=== PATIENT | male | born 1945 | race African-American/Black ===

== ENCOUNTER 2019-01-25 10:14 | Inpatient (IN) ==
[2019-01-25] MEDS ORDERED: PIPERACILLIN/TAZOBACTAM 4.5 GM/120 ML BAG IV ONE (11:00)
[2019-01-25] MEDS ORDERED: ACETAMINOPHEN 500 MG TAB PO STA (11:00)
[2019-01-25] MEDS ORDERED: DAPTOmycin 450 MG in SYRINGE 0 ML IV ONE (11:00)
[2019-01-25] MEDS ORDERED: PIPERACILL/TAZOBAC CONSULT ACTIVE PRN (11:00)
[2019-01-25 11:13] LABS: Basophils # (auto) 0.01 K/uL (0-0.2); Basophils % (auto) 0.1 %; Eosinophils # (auto) 0.02 K/uL (0-0.5); Eosinophils % (auto) 0.1 %; Hematocrit (blood only) 39.8 % (42-52); Hemoglobin 13.9 g/dL (14.0-18.0); Immature Granulocytes # (auto) 0.08 K/uL (0.00-0.02); Immature Granulocytes % (auto) 0.5 %; Lymphocytes # (auto) 1.53 K/uL (1.2-3.4); Lymphocytes % (auto) 9.9 %; Mean Corpuscular Hgb Conc 34.9 g/dL (32-36); Mean Corpuscular Volume 96.4 fL (80-100); Mean Platelet Volume 9.7 fL (7.4-10.4); Monocytes # (auto) 1.65 K/uL (0.11-0.59); Monocytes % (auto) 10.7 %; Neutrophils # (auto) 12.13 K/uL (1.4-6.5); Neutrophils % (auto) 78.7 %; Platelet Count 223 K/uL (130-400); RDW Coefficient of Variation 13.2 % (11.5-14.5); RDW Standard Deviation 46.3 fL (36.4-46.3); Red Blood Count 4.13 M/uL (4.7-6.1); White Blood Count 15.42 K/uL (4.8-10.8)
--- NOTE | 2019-01-25 11:18 | XRay Report ---
XR chest 1V portable CLINICAL HISTORY: Sepsis COMPARISON STUDY: No previous studies for comparison. FINDINGS: The cardiac and mediastinal contours are normal. There is no evidence of focal pulmonary co nsolidation. There is no evidence of failure. No pleural effusions are visualized.[ There is a radiop aque BB like object projected over the left scapular glenoid. IMPRESSION: No active disease in the chest. Electronically signed by: Eber Ahumada M.D. 01/25/2019 11:17 AM
[2019-01-25 11:26] LABS: INR 1.1 (0.9-1.1); Partial Thromboplastin Time 28.2 Seconds (21.0-31.0); Prothrombin Time 11.4 Seconds (9.0-12.0)
[2019-01-25 11:31] LABS: Alanine Aminotransferase 42 U/L (12-78); Albumin Level 3.1 gm/dl (3.4-5.0); Aspartate Aminotransferase 28 U/L (15-37); BUN Creatinine Ratio 8.6 (10-20); Blood Urea Nitrogen 13 mg/dl (7-18); Calcium 8.9 mg/dl (8.5-10.1); Carbon Dioxide 21 mmol/L (21-32); Chloride 104 mmol/L (98-107); Creatinine Clr Calc Pharmacy 50.2 ml/min; Est GFR (African American) 51.8; Est GFR (Non-African American) 44.7; Glucose 125 mg/dl (70-99); Potassium 3.4 mmol/L (3.5-5.1); Sodium 136 mmol/L (136-145)
[2019-01-25 11:35] LABS: Albumin Globulin Ratio 0.7 (0.9-2); Alkaline Phosphatase 92 U/L (45-117); Bilirubin,Total 2.3 mg/dl (0.2-1); Creatine Kinase 154 U/L (39-308); Creatine Kinase MB < 1.0 ng/ml (0.5-3.6); Globulin 4.3 gm/dl (2.5-4.0); Total Protein 7.4 gm/dl (6.4-8.2)
[2019-01-25] MEDS ORDERED: SODIUM CHLORIDE 0.9% 1000ML 1,000 ML IV ONE (11:36)
[2019-01-25] MEDS ORDERED: POTASSIUM CHLORIDE 20 MEQ TABCR PO STA (11:36)
[2019-01-25] MEDS ORDERED: IOVERSOL 100ml IV PRN (11:53)
[2019-01-25 11:54] LABS: iSTAT Creatinine 1.4 mg/dl (0.6-1.3); iSTAT Hemoglobin 13.9 g/dl (14.0-18.0); iSTAT Potassium 3.5 mEq/L (3.3-5.0)
--- NOTE | 2019-01-25 12:12 | CT Scan Report ---
CT abd pelvis IV con only CLINICAL HISTORY: 73 years-old Male presenting with prostatitis, dizziness, disorientation, urinary i ncontinence, hematuria, fever and chills for 2 days, history of prostate biopsy on 01/22/2019. TECHNIQUE: Multidetector CT of the abdomen and pelvis was performed after the administration of intra venous contrast. IV contrast: 93 mL of Optiray 320. One or more dose lowering techniques were used co nsistent with the principles of ALARA (as low as reasonably achievable), including automatic exposure control, mA or kV adjustment to individual patient size, and/or use of iterative reconstruction. COMPARISON: None. CT DOSE (mGy.cm): The estimated cumulative dose is 1033.42 mGy.cm. FINDINGS: Insulator Tester topogram: Unremarkable. Lung bases: Normal heart size. Coronary artery calcification. No pericardial or pleural effusion. Min imal dependent changes likely atelectasis. Mild centrilobular emphysema. Paramediastinal bullae/blebs in the left perihilar region. Liver: Normal morphology. No liver lesion. Patent hepatic vasculature. Biliary: No intrahepatic or extrahepatic biliary ductal dilatation. Normal gallbladder. Pancreas: Mild parenchymal atrophy. Spleen: Normal. Splenule noted. Adrenal glands: Normal. Kidneys and ureters: Mildly asymmetric left perinephric fat infiltration. Symmetric and normal renal enhancement bilaterally. No nephrolithiasis or hydronephrosis. No gross evidence of urothelial thicke papi. Ureters nondilated. Bladder: Incompletely evaluated secondary to underdistention. Pelvic organs: Prostate enlargement likely secondary to benign prostatic hyperplasia. 2.2 cm fluid co llection within the anterior transition zone of the mid gland to apex. It is uncertain if this is in continuity with the prostatic urethra. This is suspicious for abscess given the clinical history and the presence of periprosthetic fat infiltration. Bowel: Mild rectal wall thickening in the mid to lower rectum. Mesorectal fat infiltration as well as presacral trace fluid consistent with the history of recent transrectal ultrasound-guided biopsy of the prostate. The appendix is normal. No bowel obstruction. Contrast or medication evident in the eso phagus and gastric lumen, which is radiodense. Peritoneal cavity: Trace fluid in the pelvis in the rectoprostatic recess. No free intraperitoneal or extra luminal gas. Lymph nodes: Few scattered prominent subcentimeter lymph nodes in the retroperitoneum. Vasculature: Atherosclerosis of the normal caliber abdominal aorta. IVC patent. Abdominal wall: Normal. Musculoskeletal: Degenerative changes of the spine. Partially visualized left femoral hyperdensity. D egenerative changes of the left hip joint. IMPRESSION: 1. 2.2 cm fluid collection within the prostate most suspicious for prostatic abscess. The primary di fferential consideration includes cystic degeneration of a benign prostatic hyperplasia (BPH) nodule. 2. Inflammatory changes in the region of the rectum consistent with history of recent TRUS prostate biopsy. 3. Prostatomegaly. 4. Nonspecific perinephric infiltration on the left without abnormal parenchymal enhancement or othe r evidence to suggest upper tract infection. 5. Emphysema. Electronically signed by: Herman Hastings M.D. 01/25/2019 12:11 PM
[2019-01-25] MEDS ORDERED: GENTAMICIN CONSULT ACTIVE PRN (12:44)
[2019-01-25] MEDS ORDERED: GENTAMICIN SULFATE 120 MG in DEXTROSE 5% 100 ML IV STA (12:44)
--- NOTE | 2019-01-25 12:54 | Urology Consultation ---
Date of Consultation January 25, 2019 Assessment & Plan (1) Fever: (2) Prostate abscess: 73yo M with prostate abscess, sepsis s/p prostate biopsy Pt has been NPO all day. Pt also evaluated by Dr. Ziegler at bedside. Acute febrile illness the context of prostate abscess on CT imaging, will pro ceed with OR for transurethral resection of prostate emergently. Risks and benefits reviewed by Dr. Ziegler. OR notified. Preoperative CXR and EKG done. Pt covered with IV zosyn and daptomycin. IV Gentamicin also to be administered in preop - ordered by emergency medicine. Dr. Sesay from medicine also at bedside to evaluate patient, agreeable to proceed with emergent TURP. He will be admitted to medicine post-operatively. Thank you for allowing us to participate in the acute care of Mr. Lara. History of Present Illness Reason for Consultation: prostate abscess Requesting Physician: Dr. Beckwith History of Present Illness 73yo M inmate from [facility] with LUTS and elevated PSA presented to [facility] ED for evaluation of fever s/p prostate biopsy on 01/[address] Ziegler. He was doing okay post op day one, then develops general malaise and fevers/chills.. Upon ED evaluation, he was febrile at 38.0C, wbc 15.4, lactic acid 1.88. He was tachycardic, BP stable. CT imaging demonstrates 2.2cm fluid collection within the prostate, consistent with prostate abscess. He is alert and oriented. Denies SOB/Chest pain. Denies dysuria, mild hematuria. He denies pelvic pain or abdominal pain. Patient History Medical History No significant family history No significant medical problems No significant past medical history No significant past surgical history Social History Preferred Language: Hungarian Emt Basic Required: No Beliefs That Will Affect Care: None Current Living Situation: Other Current Living Situation Comment: [facility] Other Information That Helps Us Care for You: No Feels Safe at Home: Yes Safety Concerns: Feels Safe At This Time Smoking Status: Former smoker Smoking End Date: 2001 Second Hand Exposure: No Hx Alcohol Use: No Hx Substance Use: No Review of Systems Constitutional: + fever, + chills and + malaise; no weight loss Eyes: no corrective lenses and no problem reported Ear, Nose, Mouth, Throat: no ear pain and no tinnitus Respiratory: no cough and no dyspnea Cardiovascular: no chest pain and no dyspnea Gastrointestinal: no abdominal pain, no nausea and no vomiting Genitourinary: no dysuria, no nocturia, no hematuria and no testicle pain Musculoskeletal: no back pain Integumentary: no acne Neurologic: no numbness, no paresthesia and no radiating pain memory loss s/p CVA per patient Psychiatric: no depression and no hopelessness Endocrine: + fatigue; no polyuria Hematologic / Lymphatic: no easy bleeding Physical Exam Constitutional: + ill appearing; no acute distress and not lethargic warm to touch Eyes: no nystagmus ENMT: Ears: no hearing impairment and no TM abnormality Neck: + trachea not midline Respiratory: no respiratory distress and does not use accessory muscles Cardiovascular: Rate/Rhythm: + tachycardic Heart Sounds: normal S1 and normal S2 Vessels: no JVD Chest (Breasts): Breast: no breast mass Gastrointestinal (Abdomen): Inspection/Auscultation: abdomen not distended and no abdominal edema Percussion/Palpation: abdomen soft; abdomen nontender Musculoskeletal: Head/Neck/Chest: normocephalic and head atraumatic Skin: no rashes and no lesions Neurologic: CN's II-XI intact bilaterally and awake; not confused and not obtunded Psychiatric: Orientation: alert and oriented x 3 Eye Contact: good eye contact Speech: no pressured speech Results & Data Vital Signs (Past 12 Hours) Vital Signs Temp Pulse Resp BP Pulse Ox 01/25/19 12:31 37.4 C 01/25/19 12:08 108 H 21 115/70 95 01/25/19 12:04 111 H 19 01/25/19 11:45 115 H 19 01/25/19 11:30 115 H 17 01/25/19 11:15 115 H 18 01/25/19 11:00 119 H 20 01/25/19 10:45 116 H 20 01/25/19 10:18 38.0 C H 126 H 20 117/59 L 94 Laboratory Results Laboratory Results - last 48 hr 01/25/19 01/25/19 01/25/19 10:47 10:47 10:47 WBC 15.42 H RBC 4.13 L Hgb 13.9 L POC Hgb Hct 39.8 L POC Hct MCV 96.4 MCH 33.7 MCHC 34.9 RDW Std Deviation 46.3 RDW Coeff of Babak 13.2 Plt Count 223 MPV 9.7 Immature Gran % (Auto) 0.5 Neut % (Auto) 78.7 Lymph % (Auto) 9.9 Hancock % (Auto) 10.7 Eos % (Auto) 0.1 Baso % (Auto) 0.1 Immature Gran # (Auto) 0.08 H Neut # (Auto) 12.13 H Lymph # (Auto) 1.53 Hancock # (Auto) 1.65 H Eos # (Auto) 0.02 Baso # (Auto) 0.01 PT 11.4 INR 1.1 APTT 28.2 PTT Ratio 1.0 POC Sodium Sodium 136 POC Potassium Potassium 3.4 L POC Chloride Chloride 104 Carbon Dioxide 21 POC Total CO2 Anion Gap 11.0 POC Anion Gap POC BUN BUN 13 Creatinine 1.54 H POC Creatinine Est Cr Clr Drug Dosing 50.2 Est GFR ( Amer) 51.8 Est GFR (Non-Af Amer) 44.7 BUN/Creatinine Ratio 8.6 L Glucose 125 H POC Glucose (other) POC Lactic Acid Vinny Calcium 8.9 POC Ioniz Calcium John Total Bilirubin 2.3 H AST 28 ALT 42 Alkaline Phosphatase 92 Total Creatine Kinase 154 CK-MB (CK-2) < 1.0 CK/CKMB % Calc TNP Total Protein 7.4 Albumin 3.1 L Globulin 4.3 H Albumin/Globulin Ratio 0.7 L 01/25/19 01/25/19 11:38 11:42 WBC RBC Hgb POC Hgb 13.9 L Hct POC Hct 41 L MCV MCH MCHC RDW Std Deviation RDW Coeff of Babak Plt Count MPV Immature Gran % (Auto) Neut % (Auto) Lymph % (Auto) Hancock % (Auto) Eos % (Auto) Baso % (Auto) Immature Gran # (Auto) Neut # (Auto) Lymph # (Auto) Hancock # (Auto) Eos # (Auto) Baso # (Auto) PT INR APTT PTT Ratio POC Sodium 136 Sodium POC Potassium 3.5 Potassium POC Chloride 100 L Chloride Carbon Dioxide POC Total CO2 22 L Anion Gap POC Anion Gap 18.0 POC BUN 13 BUN Creatinine POC Creatinine 1.4 H Est Cr Clr Drug Dosing Est GFR ( Amer) Est GFR (Non-Af Amer) BUN/Creatinine Ratio Glucose POC Glucose (other) 123 H POC Lactic Acid Vinny 1.88 H Calcium POC Ioniz Calcium John 1.00 L Total Bilirubin AST ALT Alkaline Phosphatase Total Creatine Kinase CK-MB (CK-2) CK/CKMB % Calc Total Protein Albumin Globulin Albumin/Globulin Ratio (1) Fever Fever type: unspecified Qualified Code(s): R50.9 - Fever, unspecified
--- NOTE | 2019-01-25 13:18 | History & Physical Report ---
Date of Service January 25, 2019 Assessment & Plan (1) Fever: Possible early sepsis Dapto/Zosyn in the ED, further abx as per urology Blood cx pending (2) Prostate abscess: s/p bx with Dr. Ziegler on 01/23 Planning for OR this afternoon Will defer choice of IVF and abx to urology Pt is NPO for OR, can have a diet after if urology is fine with this (3) Hyperlipidemia: continue home meds (4) BPH (benign prostatic hyperplasia): continue home meds (5) History of CVA (cerebrovascular accident): Aspirin 325mg Hold for now given OR, resume once urology feels able (6) DVT prophylaxis: SCDs for now given OR status History of Present Illness Primary Care Provider: ALLEY Steinberg 73 y/o M c/o fever. Pt underwent a prostate bx with Dr. Ziegler 2 days ago. Since that time, he has felt generally unwell and was noted to have a fever. He was given an antibiotic at some point, although I cannot tell what that was and pt is not certain. Today, pt had an episode of urinary incontinence that was noted to be bloody. This had not happened to him prior. He has not had a bowel movement since his bx. He notes no pain in the region of the bx. Pt denies SOB, chest pain, abd pain, n/v/c/d, LE pain or swelling. Allergies Allergy/AdvReac Type Severity Reaction Status Date / Time No Known Allergies Allergy Unverified 01/25/19 13:21 Home Medications Home Medications Medication Instructions Recorded Confirmed Type aspirin [Aspir-81] 81 mg PO DAILY 01/25/19 01/25/19 History atorvastatin 40 mg PO PM 01/25/19 01/25/19 History Past Med/Surg History Medical History No significant family history No significant medical problems No significant past medical history No significant past surgical history Social History Preferred Language: New Zealander Astrochemist Required: No Beliefs That Will Affect Care: None Current Living Situation: Other Current Living Situation Comment: [facility] Other Information That Helps Us Care for You: No Feels Safe at Home: Yes Safety Concerns: Feels Safe At This Time Smoking Status: Former smoker Smoking End Date: 2001 Second Hand Exposure: No Hx Alcohol Use: No Hx Substance Use: No Review of Systems Review of Systems: Pertinent positives and negatives reviewed in HPI--all others negative Physical Exam Constitutional: WD/WN, vitals as above + ill appearing Eyes: normal visual burden by confrontation and + anicteric sclerae Neck: normal visual inspection and trachea midline Respiratory: normal respiratory effort, lungs clear to auscultation Cardiovascular: Rate/Rhythm: regular rate and regular rhythm Gastrointestinal (Abdomen): Inspection/Auscultation: abdomen not distended Percussion/Palpation: abdomen soft; abdomen nontender Musculoskeletal: Head/Neck/Chest: normocephalic and head atraumatic negative for edema, peripheral pulses intact Skin: no rashes, warm and dry Neurologic: awake; not confused Speech / Cognition: normal speech Psychiatric: A+Ox3, euthymic affect Results & Data Vital Signs (Past 12 Hours) Vital Signs Temp Pulse Resp BP Pulse Ox 01/25/19 12:45 103 H 17 97 01/25/19 12:31 37.4 C 01/25/19 12:30 105 H 19 112/68 97 01/25/19 12:15 106 H 19 95 01/25/19 12:09 109 H 19 96 01/25/19 12:08 108 H 21 115/70 95 01/25/19 12:04 111 H 19 01/25/19 11:45 115 H 19 01/25/19 11:30 115 H 17 01/25/19 11:15 115 H 18 01/25/19 11:00 119 H 20 01/25/19 10:45 116 H 20 01/25/19 10:18 38.0 C H 126 H 20 117/59 L 94 Diagnostic Findings CXR: neg for acute CTAP: abcess noted in region of bx ECG Rhythm: sinus tachycardia Code Status & VTE Plan Code Status Full code VTE Prophylaxis Plan VTE Prophylaxis will be ordered: Yes (1) Fever Fever type: unspecified Qualified Code(s): R50.9 - Fever, unspecified
[2019-01-25] MEDS ORDERED: ONDANSETRON INJ 2 MG/ML 2 ML VIAL IV PRN (13:29)
[2019-01-25] MEDS ORDERED: MAGNESIUM HYDROXIDE SUSP 30 ML UDC PO PRN (13:29)
--- NOTE | 2019-01-25 13:35 | Urology Progress Note ---
Date of Service January 25, 2019 Subjective Pt in preop . Ct reviewed w pathology . They feel he has fluid abscess in prostate . Pt understands risk of ongoing fever and bleeding with need for transfusion and or reoperation and agrees to proceed . Results & Data Vital Signs (Past 12 Hours) Vital Signs Temp Pulse Pulse Resp BP BP Pulse Ox 01/25/19 13:16 37.4 C 101 H 18 114/72 97 01/25/19 12:45 103 H 17 97 01/25/19 12:31 37.4 C 01/25/19 12:30 105 H 19 112/68 97 01/25/19 12:15 106 H 19 95 01/25/19 12:09 109 H 19 96 01/25/19 12:08 108 H 21 115/70 95 01/25/19 12:04 111 H 19 01/25/19 11:45 115 H 19 01/25/19 11:30 115 H 17 01/25/19 11:15 115 H 18 01/25/19 11:00 119 H 20 01/25/19 10:45 116 H 20 01/25/19 10:18 38.0 C H 126 H 20 117/59 L 94
[2019-01-25] MEDS ORDERED: MIDAZOLAM HCL 1 MG/ML 2ML VIAL ONE (13:36)
[2019-01-25] MEDS ORDERED: PROPOFOL IV EMULSION 10 MG/ML 20 ML VIAL IV ONE (13:36)
[2019-01-25] MEDS ORDERED: LIDOCAINE HCL 2% 2 ML VIAL/AMP(20MG/ML) INFIL ONE (13:36)
[2019-01-25] MEDS ORDERED: fentaNYL citrate 100 MCG/2 ML VIAL ONE (13:36)
--- NOTE | 2019-01-25 13:43 | Anesthesiology Consultation ---
Date of Service January 25, 2019 Assessment & Plan Chart Review Chart Review: Acceptable Risk for Surgery Consults Requested none Proposed Anesthesia Risk / Benefits Reviewed With: PT / POA / Parent / Guardian, Accepts Plan and Informed Consent Obtained History Surgery Operation Date: 01/25/19 12:50 Proposed Procedures p Transurethral Resection Prostate of Abscess - Angelo Ziegler MD Height/Weight Height: 5 ft 10 in Weight: 92 kg Allergies Allergy/AdvReac Type Severity Reaction Status Date / Time No Known Allergies Allergy Unverified 01/25/19 13:21 Medications Home Medications Medication Instructions Recorded Confirmed Last Taken aspirin [Aspir-81] 81 mg PO DAILY 01/25/19 01/25/19 01/22/19 08:00 atorvastatin 40 mg PO PM 01/25/19 01/25/19 Unknown Active Medications Generic Name Dose Route Start Last Admin Trade Name Freq PRN Reason Stop Dose Admin Ioversol 93 ml 01/25/19 11:53 01/25/19 11:53 Optiray 320 100ml IV 01/29/19 11:52 93 ml ONCE PRN Administration Interaction Checking NPO Date Last Intake of Fluids: 01/24/19 Time Last Intake of Fluids: 21:00 Date Last Intake of Solids: 01/23/19 Time Last Intake of Solids: 18:00 Past Medical History Medical History No significant family history No significant medical problems No significant past medical history No significant past surgical history Social History Smoking Status: Former smoker Smoking End Date: 2001 Hx Alcohol Use: No Hx Substance Use: No Physical Exam Vital Signs Last Vital Signs Temp 37.4 C 01/25/19 13:16 Pulse 101 H 01/25/19 13:16 Resp 18 01/25/19 13:16 BP 114/72 01/25/19 13:16 Pulse Ox 97 01/25/19 13:16
[2019-01-25] MEDS ORDERED: PHENYLEPHRINE 100MCG/ML 5ML SYR ONE (15:02)
[2019-01-25] MEDS ORDERED: ePHEDrine sulfate 50 MG/ML SYR ONE (15:02)
--- NOTE | 2019-01-25 16:37 | Post Operative Brief Note ---
Immediate Post Op Note v1 Date of Surgery January 25, 2019 Pre & Post Diagnosis Operation Date: 01/25/19 12:50 Pre-Op Diagnosis: Prostate Abscess Post-Op Diagnosis: Prostate Abscess Procedure Operation Date: 01/25/19 12:50 Actual Procedures p Transurethral Resection Prostate of Abscess(Not Applicable) - Angelo Ziegler MD Surgeon Angelo Ziegler MD Cutting Table Operator none Estimated Blood Loss 5 Findings See Below (no definite abscess found toothpaste like pus seen right greater than left) Drains Gibson Catheter
[2019-01-25] MEDS ORDERED: fentaNYL citrate 100 MCG/2 ML VIAL IV PRN (16:45)
[2019-01-25] MEDS ORDERED: ePHEDrine sulfate 50 MG/ML AMP IV PRN (16:45)
[2019-01-25] MEDS ORDERED: ATROPINE SULFATE 0.1 MG/ML 10ML SYR IV PRN (16:45)
--- NOTE | 2019-01-25 17:15 | Anesthesiology Progress Note ---
Date of Service January 25, 2019 Anesthesia Post Procedure Vital Signs Vital Signs: Temp Pulse Pulse Pulse Resp BP BP 01/25/19 17:05 75 12 116/75 01/25/19 16:55 74 11 L 114/78 01/25/19 16:45 72 11 L 119/80 01/25/19 16:35 73 11 L 112/78 01/25/19 16:24 37.2 C 75 12 108/77 01/25/19 13:16 37.4 C 101 H 18 114/72 01/25/19 12:45 103 H 17 01/25/19 12:31 37.4 C 01/25/19 12:30 105 H 19 112/68 01/25/19 12:15 106 H 19 01/25/19 12:09 109 H 19 01/25/19 12:08 108 H 21 115/70 01/25/19 12:04 111 H 19 01/25/19 11:45 115 H 19 01/25/19 11:30 115 H 17 01/25/19 11:15 115 H 18 01/25/19 11:00 119 H 20 01/25/19 10:45 116 H 20 01/25/19 10:18 38.0 C H 126 H 20 117/59 L Pulse Ox 01/25/19 17:05 100 01/25/19 16:55 100 01/25/19 16:45 100 01/25/19 16:35 100 01/25/19 16:24 100 01/25/19 13:16 97 01/25/19 12:45 97 01/25/19 12:31 01/25/19 12:30 97 01/25/19 12:15 95 01/25/19 12:09 96 01/25/19 12:08 95 01/25/19 12:04 01/25/19 11:45 01/25/19 11:30 01/25/19 11:15 01/25/19 11:00 01/25/19 10:45 01/25/19 10:18 94 Pain Intensity Abdomen: Pain Intensity: 4 Transfer of Care Handoff Completed per policy Notes Mental Status: alert / awake / arousable Patient Amnestic to Procedure: Yes Nausea / Vomiting: adequately controlled Pain: adequately controlled Airway Patency, RR, SpO2: stable & adequate BP & HR: stable & adequate Hydration State: stable & adequate Anesthetic Complications: no major complications apparent and Pt Satisfied with anesthetic care
[2019-01-25] MEDS: PIPERACILLIN/TAZOBACTAM 3.375 GM in DEXTROSE 5% 100 ML IV SCH (21:07)
[2019-01-26] MEDS: PIPERACILLIN/TAZOBACTAM 3.375 GM in DEXTROSE 5% 100 ML IV SCH ×3 (05:49→21:20)
[2019-01-26 06:06] LABS: Hematocrit (blood only) 36.1 % (42-52); Hemoglobin 12.4 g/dL (14.0-18.0); Immature Granulocytes # (auto) 0.03 K/uL (0.00-0.02); Immature Granulocytes % (auto) 0.3 %; Lymphocytes # (auto) 1.18 K/uL (1.2-3.4); Lymphocytes % (auto) 11.3 %; Mean Corpuscular Hgb Conc 34.3 g/dL (32-36); Mean Platelet Volume 9.2 fL (7.4-10.4); Monocytes # (auto) 0.69 K/uL (0.11-0.59); Monocytes % (auto) 6.6 %; Neutrophils # (auto) 8.58 K/uL (1.4-6.5); Neutrophils % (auto) 81.8 %; Platelet Count 193 K/uL (130-400); RDW Coefficient of Variation 13.1 % (11.5-14.5); RDW Standard Deviation 46.4 fL (36.4-46.3); Red Blood Count 3.76 M/uL (4.7-6.1); White Blood Count 10.48 K/uL (4.8-10.8)
[2019-01-26 06:39] LABS: BUN Creatinine Ratio 11.8 (10-20); Calcium 8.6 mg/dl (8.5-10.1); Creatinine Clr Calc Pharmacy 79.5 ml/min; Est GFR (African American) 86.3; Est GFR (Non-African American) 74.5; Potassium 4.1 mmol/L (3.5-5.1)
--- NOTE | 2019-01-26 07:34 | Emergency Department Note ---
Entered by Armida Pollock acting as a scribe for Colin Beckwith MD History of Present Illness General Chief complaint: Fever Stated complaint: FEVER, LIGHTHEADED Time Seen by Provider: 01/25/19 10:53 Source: patient Limitations: no limitations History of Present Illness Provider complaint: fever Onset (ago): day(s) 2 Location: head Maximum Pain Intensity: 4 Associated symptoms: + other (+abdominal pain, +incontinence, +bloody urine) Treatments prior to arrival: none The patient is a 73 year old male who presents to the Emergency Room with complaints of fevers that began 2 days prior to arrival. The patient states that he has abdominal pain, bloody urine, and incontinence. The patient states that he had a prostate exam done 2 days prior to arrival but states that he does not know why it was done. The patient denies a history of any prostate infections. The patient denies taking any Tylenol prior to arrival. 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 and A total of 10 systems reviewed and were otherwise negative Physical Exam Vital Signs Vital Signs - 24 hr 01/25/19 10:18 01/25/19 10:45 01/25/19 11:00 Temperature 38.0 C H Temperature Source Oral Sepsis Recent Fever Within 48 Hours Yes Sepsis New/Unexplained Change in Mental Status No Sepsis Action Taken by Nursing No Action Required Pulse Rate 126 H 116 H 119 H Respiratory Rate 20 20 20 Blood Pressure 117/59 L Blood Pressure Mean 78 Pulse Oximetry 94 Oxygen Delivery Method Room Air Room Air 01/25/19 11:15 01/25/19 11:30 01/25/19 11:45 Temperature Temperature Source Sepsis Recent Fever Within 48 Hours Sepsis New/Unexplained Change in Mental Status Sepsis Action Taken by Nursing Pulse Rate 115 H 115 H 115 H Respiratory Rate 18 17 19 Blood Pressure Blood Pressure Mean Pulse Oximetry Oxygen Delivery Method 01/25/19 12:04 01/25/19 12:08 01/25/19 12:09 Temperature Temperature Source Sepsis Recent Fever Within 48 Hours Sepsis New/Unexplained Change in Mental Status Sepsis Action Taken by Nursing Pulse Rate 111 H 108 H 109 H Respiratory Rate 19 21 19 Blood Pressure 115/70 Blood Pressure Mean 85 Pulse Oximetry 95 96 Oxygen Delivery Method Room Air Room Air 01/25/19 12:15 01/25/19 12:30 01/25/19 12:31 Temperature 37.4 C Temperature Source Oral Sepsis Recent Fever Within 48 Hours Sepsis New/Unexplained Change in Mental Status Sepsis Action Taken by Nursing Pulse Rate 106 H 105 H Respiratory Rate 19 19 Blood Pressure 112/68 Blood Pressure Mean 82 Pulse Oximetry 95 97 Oxygen Delivery Method Room Air Room Air 01/25/19 12:45 01/25/19 13:08 Temperature Temperature Source Sepsis Recent Fever Within 48 Hours Sepsis New/Unexplained Change in Mental Status Sepsis Action Taken by Nursing Pulse Rate 103 H Respiratory Rate 17 Blood Pressure Blood Pressure Mean Pulse Oximetry 97 Oxygen Delivery Method Room Air Room Air GENERAL: Awake, alert, well-appearing, in no acute distress HENT: Normocephalic, atraumatic. Oropharynx unremarkable. EYES: Normal conjunctiva. Sclera non-icteric. NECK: Supple. No nuchal rigidity. FROM. No JVD. RESPIRATORY: Clear to auscultation. CARDIAC: Regular rate, normal rhythm. Extremities warm and well perfused. Pulses equal. ABDOMEN: Soft, non-distended. No tenderness to palpation. No rebound or guarding. No masses. RECTAL: Deferred. MUSCULOSKELETAL: Chest examination reveals no tenderness. The back is symmetrical on inspection without obvious abnormality. There is no CVA tenderness to palpation. No joint edema. LOWER EXTREMITIES: Calves are equal size bilaterally and non-tender. No edema. No discoloration. NEURO: Normal sensorium. No sensory or motor deficits noted. SKIN: No rash or jaundice noted. Course 1055: The patient was evaluated in room C4, and a complete history and physical examination were performed. 1219: I discussed the patient's case with Dr. Sesay [facility] Hospitalist who will evaluate the patient for further hospitalization. Consultations Consultation #1: Dr. Lázaro Estes [facility] Hospitalist Time: 12:19 Administered Medications Piperacillin Sod/Tazobactam (Sod 3.375 gm/ Dextrose) 115 mls @ 28.75 mls/hr IV Q8H KATHRIN; Protocol Stop: 02/04/19 20:59 Last Admin: 01/26/19 05:49 Dose: 28.8 mls/hr Documented by: [id number] Infusion: 01/26/19 01:09 Dose: 0 mls/hr Documented by: [id number] Admin: 01/25/19 21:07 Dose: 28.8 mls/hr Documented by: [id number] Ioversol (Optiray 320 100ml) 93 ml IV ONCE PRN PRN Reason: Interaction Checking Stop: 01/29/19 11:52 Last Admin: 01/25/19 11:53 Dose: 93 ml Documented by: [id number] Discontinued Medications Acetaminophen (Tylenol) 1,000 mg PO NOW STA Stop: 01/25/19 11:01 Last Admin: 01/25/19 11:11 Dose: 1,000 mg Documented by: [id number] Piperacillin Sod/Tazobactam Sod (Zosyn) 4.5 gm in 120 mls @ 240 mls/hr IV NOW ONE Stop: 01/25/19 11:29 Last Infusion: 01/25/19 12:50 Dose: 0 mls/hr Documented by: [id number] Admin: 01/25/19 12:10 Dose: 240 mls/hr Documented by: [id number] Daptomycin 450 mg/ Syringe 9 mls @ 4.5 mls/min IV NOW ONE; Protocol Stop: 01/25/19 11:01 Last Admin: 01/25/19 11:46 Dose: 4.5 mls/min Documented by: [id number] Sodium Chloride (Nss 1000ml) 1,000 mls @ 999 mls/hr IV .Q1H1M ONE Stop: 01/25/19 12:36 Last Infusion: 01/25/19 19:19 Dose: 0 mls/hr Documented by: [id number] Admin: 01/25/19 12:10 Dose: 999 mls/hr Documented by: [id number] Gentamicin Sulfate 120 mg/ (Dextrose) 103 mls @ 100 mls/hr IV ONCE STA; Protocol Stop: 01/25/19 13:45 Last Infusion: 01/25/19 19:19 Dose: 0 mls/hr Documented by: [id number] Admin: 01/25/19 13:35 Dose: 100 mls/hr Documented by: [id number] Potassium Chloride (Klor-Con M20) 40 meq PO NOW STA Stop: 01/25/19 11:37 Last Admin: 01/25/19 11:43 Dose: 40 meq Documented by: [id number] Medical Decision Making Differential Diagnosis Differential diagnosis includes: viral syndrome, otitis, pharyngitis, pneumonia, influenza, meningitis, urinary tract infection, sepsis, bacteremia, as well as others were entertained. Medical Records Attestation: I reviewed the patient's medical records. Home Medications Current Medication List: was personally reviewed by me Laboratory Data Attestation: I reviewed the patient's lab results. Result diagrams: 01/26/19 05:46 01/26/19 05:46 Lab Results 01/25/19 01/25/19 01/25/19 Range/Units 10:47 10:47 10:47 WBC 15.42 H (4.8-10.8) K/uL RBC 4.13 L (4.7-6.1) M/uL Hgb 13.9 L (14.0-18.0) g/dL POC Hgb (14.0-18.0) g/dl Hct 39.8 L (42-52) % POC Hct (42-52) % MCV 96.4 (80-100) fL MCH 33.7 (25-34) pg MCHC 34.9 (32-36) g/dL RDW Std Deviation 46.3 (36.4-46.3) fL RDW Coeff of Babak 13.2 (11.5-14.5) % Plt Count 223 (130-400) K/uL MPV 9.7 (7.4-10.4) fL Immature Gran % (Auto) 0.5 % Neut % (Auto) 78.7 % Lymph % (Auto) 9.9 % Solano % (Auto) 10.7 % Eos % (Auto) 0.1 % Baso % (Auto) 0.1 % Immature Gran # (Auto) 0.08 H (0.00-0.02) K/uL Neut # (Auto) 12.13 H (1.4-6.5) K/uL Lymph # (Auto) 1.53 (1.2-3.4) K/uL Sol[place] # (Auto) 1.65 H (0.11-0.59) K/uL Eos # (Auto) 0.02 (0-0.5) K/uL Baso # (Auto) 0.01 (0-0.2) K/uL PT 11.4 (9.0-12.0) Seconds INR 1.1 (0.9-1.1) APTT 28.2 (21.0-31.0) Seconds PTT Ratio 1.0 POC Sodium (135-144) mEq/L Sodium 136 (136-145) mmol/L POC Potassium (3.3-5.0) mEq/L Potassium 3.4 L (3.5-5.1) mmol/L POC Chloride (101-112) mEq/L Chloride 104 (98-107) mmol/L Carbon Dioxide 21 (21-32) mmol/L POC Total CO2 (24-31) mEq/l Anion Gap 11.0 (3-11) POC Anion Gap (16-25) mmol/L POC BUN (7-18) mg/dl BUN 13 (7-18) mg/dl Creatinine 1.54 H (0.6-1.4) mg/dl POC Creatinine (0.6-1.3) mg/dl Est Cr Clr Drug Dosing 50.2 ml/min Est GFR ( Amer) 51.8 Est GFR (Non-Af Amer) 44.7 BUN/Creatinine Ratio 8.6 L (10-20) Glucose 125 H (70-99) mg/dl POC Glucose (other) (70-99) mg/dl POC Lactic Acid Vinny (0.90-1.70) mmol/L Calcium 8.9 (8.5-10.1) mg/dl POC Ioniz Calcium John (1.12-1.32) mmol/l Total Bilirubin 2.3 H (0.2-1) mg/dl AST 28 (15-37) U/L ALT 42 (12-78) U/L Alkaline Phosphatase 92 (45-117) U/L Total Creatine Kinase 154 (39-308) U/L CK-MB (CK-2) < 1.0 (0.5-3.6) ng/ml CK/CKMB % Calc TNP Total Protein 7.4 (6.4-8.2) gm/dl Albumin 3.1 L (3.4-5.0) gm/dl Globulin 4.3 H (2.5-4.0) gm/dl Albumin/Globulin Ratio 0.7 L (0.9-2) Hepatitis C Ab Screen (Neg) Blood Type Antibody Screen 01/25/19 01/25/19 01/25/19 Range/Units 10:47 10:47 11:38 WBC (4.8-10.8) K/uL RBC (4.7-6.1) M/uL Hgb (14.0-18.0) g/dL POC Hgb (14.0-18.0) g/dl Hct (42-52) % POC Hct (42-52) % MCV (80-100) fL MCH (25-34) pg MCHC (32-36) g/dL RDW Std Deviation (36.4-46.3) fL RDW Coeff of Babak (11.5-14.5) % Plt Count (130-400) K/uL MPV (7.4-10.4) fL Immature Gran % (Auto) % Neut % (Auto) % Lymph % (Auto) % Solano % (Auto) % Eos % (Auto) % Baso % (Auto) % Immature Gran # (Auto) (0.00-0.02) K/uL Neut # (Auto) (1.4-6.5) K/uL Lymph # (Auto) (1.2-3.4) K/uL Solano # (Auto) (0.11-0.59) K/uL Eos # (Auto) (0-0.5) K/uL Baso # (Auto) (0-0.2) K/uL PT (9.0-12.0) Seconds INR (0.9-1.1) APTT (21.0-31.0) Seconds PTT Ratio POC Sodium (135-144) mEq/L Sodium (136-145) mmol/L POC Potassium (3.3-5.0) mEq/L Potassium (3.5-5.1) mmol/L POC Chloride (101-112) mEq/L Chloride (98-107) mmol/L Carbon Dioxide (21-32) mmol/L POC Total CO2 (24-31) mEq/l Anion Gap (3-11) POC Anion Gap (16-25) mmol/L POC BUN (7-18) mg/dl BUN (7-18) mg/dl Creatinine (0.6-1.4) mg/dl POC Creatinine (0.6-1.3) mg/dl Est Cr Clr Drug Dosing ml/min Est GFR ( Amer) Est GFR (Non-Af Amer) BUN/Creatinine Ratio (10-20) Glucose (70-99) mg/dl POC Glucose (other) (70-99) mg/dl POC Lactic Acid Vinny 1.88 H (0.90-1.70) mmol/L Calcium (8.5-10.1) mg/dl POC Ioniz Calcium John (1.12-1.32) mmol/l Total Bilirubin (0.2-1) mg/dl AST (15-37) U/L ALT (12-78) U/L Alkaline Phosphatase (45-117) U/L Total Creatine Kinase (39-308) U/L CK-MB (CK-2) (0.5-3.6) ng/ml CK/CKMB % Calc Total Protein (6.4-8.2) gm/dl Albumin (3.4-5.0) gm/dl Globulin (2.5-4.0) gm/dl Albumin/Globulin Ratio (0.9-2) Hepatitis C Ab Screen Neg (Neg) Blood Type A Positive Antibody Screen NEGATIVE 01/25/19 Range/Units 11:42 WBC (4.8-10.8) K/uL RBC (4.7-6.1) M/uL Hgb (14.0-18.0) g/dL POC Hgb 13.9 L (14.0-18.0) g/dl Hct (42-52) % POC Hct 41 L (42-52) % MCV (80-100) fL MCH (25-34) pg MCHC (32-36) g/dL RDW Std Deviation (36.4-46.3) fL RDW Coeff of Babak (11.5-14.5) % Plt Count (130-400) K/uL MPV (7.4-10.4) fL Immature Gran % (Auto) % Neut % (Auto) % Lymph % (Auto) % Solano % (Auto) % Eos % (Auto) % Baso % (Auto) % Immature Gran # (Auto) (0.00-0.02) K/uL Neut # (Auto) (1.4-6.5) K/uL Lymph # (Auto) (1.2-3.4) K/uL Solano # (Auto) (0.11-0.59) K/uL Eos # (Auto) (0-0.5) K/uL Baso # (Auto) (0-0.2) K/uL PT (9.0-12.0) Seconds INR (0.9-1.1) APTT (21.0-31.0) Seconds PTT Ratio POC Sodium 136 (135-144) mEq/L Sodium (136-145) mmol/L POC Potassium 3.5 (3.3-5.0) mEq/L Potassium (3.5-5.1) mmol/L POC Chloride 100 L (101-112) mEq/L Chloride (98-107) mmol/L Carbon Dioxide (21-32) mmol/L POC Total CO2 22 L (24-31) mEq/l Anion Gap (3-11) POC Anion Gap 18.0 (16-25) mmol/L POC BUN 13 (7-18) mg/dl BUN (7-18) mg/dl Creatinine (0.6-1.4) mg/dl POC Creatinine 1.4 H (0.6-1.3) mg/dl Est Cr Clr Drug Dosing ml/min Est GFR ( Amer) Est GFR (Non-Af Amer) BUN/Creatinine Ratio (10-20) Glucose (70-99) mg/dl POC Glucose (other) 123 H (70-99) mg/dl POC Lactic Acid Vinny (0.90-1.70) mmol/L Calcium (8.5-10.1) mg/dl POC Ioniz Calcium John 1.00 L (1.12-1.32) mmol/l Total Bilirubin (0.2-1) mg/dl AST (15-37) U/L ALT (12-78) U/L Alkaline Phosphatase (45-117) U/L Total Creatine Kinase (39-308) U/L CK-MB (CK-2) (0.5-3.6) ng/ml CK/CKMB % Calc Total Protein (6.4-8.2) gm/dl Albumin (3.4-5.0) gm/dl Globulin (2.5-4.0) gm/dl Albumin/Globulin Ratio (0.9-2) Hepatitis C Ab Screen (Neg) Blood Type Antibody Screen Imaging Data Radiologist's Impression: Radiology results as stated below per my review and the radiologist's interpretation: XR chest 1V portable CLINICAL HISTORY: Sepsis COMPARISON STUDY: No previous studies for comparison. FINDINGS: The cardiac and mediastinal contours are normal. There is no evidence of focal pulmonary consolidation. There is no evidence of failure. No pleural effusions are visualized.[ There is a radiopaque BB like object projected over the left scapular glenoid. IMPRESSION: No active disease in the chest. Electronically signed by: Eber Ahumada M.D. 01/25/2019 11:[address] abd pelvis IV con only CLINICAL HISTORY: 73 years-old Male presenting with prostatitis, dizziness, disorientation, urinary incontinence, hematuria, fever and chills for 2 days, history of prostate biopsy on 01/22/2019. TECHNIQUE: Multidetector CT of the abdomen and pelvis was performed after the administration of intravenous contrast. IV contrast: 93 mL of Optiray 320. One or more dose lowering techniques were used consistent with the principles of ALARA (as low as reasonably achievable), including automatic exposure control, mA or kV adjustment to individual patient size, and/or use of iterative reconstruction. COMPARISON: None. CT DOSE (mGy.cm): The estimated cumulative dose is 1033.42 mGy.cm. 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 Lung bases: Normal heart size. Coronary artery calcification. No pericardial or pleural effusion. Minimal dependent changes likely atelectasis. Mild centrilobular emphysema. Paramediastinal bullae/blebs in the left perihilar region. Liver: Normal morphology. No liver lesion. Patent hepatic vasculature. Biliary: No intrahepatic or extrahepatic biliary ductal dilatation. Normal gallbladder. Pancreas: Mild parenchymal atrophy. Spleen: Normal. Splenule noted. Adrenal glands: Normal. Kidneys and ureters: Mildly asymmetric left perinephric fat infiltration. Symmetric and normal renal enhancement bilaterally. No nephrolithiasis or hydronephrosis. No gross evidence of urothelial thickening. Ureters nondilated. Bladder: Incompletely evaluated secondary to underdistention. Pelvic organs: Prostate enlargement likely secondary to benign prostatic hyperplasia. 2.2 cm fluid collection within the anterior transition zone of the mid gland to apex. It is uncertain if this is in continuity with the prostatic urethra. This is suspicious for abscess given the clinical history and the presence of periprosthetic fat infiltration. Bowel: Mild rectal wall thickening in the mid to lower rectum. Mesorectal fat infiltration as well as presacral trace fluid consistent with the history of recent transrectal ultrasound-guided biopsy of the prostate. The appendix is normal. No bowel obstruction. Contrast or medication evident in the esophagus and gastric lumen, which is radiodense. Peritoneal cavity: Trace fluid in the pelvis in the rectoprostatic recess. No free intraperitoneal or extra luminal gas. Lymph nodes: Few scattered prominent subcentimeter lymph nodes in the retroperitoneum. Vasculature: Atherosclerosis of the normal caliber abdominal aorta. IVC patent. Abdominal wall: Normal. Musculoskeletal: Degenerative changes of the spine. Partially visualized left femoral hyperdensity. Degenerative changes of the left hip joint. IMPRESSION: 1. 2.2 cm fluid collection within the prostate most suspicious for prostatic abscess. The primary differential consideration includes cystic degeneration of a benign prostatic hyperplasia (BPH) nodule. 2. Inflammatory changes in the region of the rectum consistent with history of recent TRUS prostate biopsy. 3. Prostatomegaly. 4. Nonspecific perinephric infiltration on the left without abnormal parenchymal enhancement or other evidence to suggest upper tract infection. 5. Emphysema. Electronically signed by: Herman Hastings M.D. 01/25/2019 12:11 PM ECG Data Attestation: I personally reviewed and interpreted this ECG as follows: Indication: abdominal pain Rate (beats per minute): 116 Rhythm: sinus tachycardia Findings: no ST depression and no ST elevation Blood Pressure Blood Pressure Findings: Normal blood pressure MDM Narrative This is a 73-year-old male who presents emergency department complaining of fever and tachycardia. The patient recently had a prostate biopsy and for this reason he was sent for a CAT scan the abdomen pelvis. CAT scan was concerning for abscess. For this reason a lactate white blood cell count and blood cultures were obtained. The patient is incontinent of urine. He was given normal saline bolus x2. I did discuss the case with the urologist collection card clerk who was kind enough to come and see the patient. Case was also discussed with the hospitalist on-call. Patient was started on broad-spectrum antibiotics and taken to the operating room. Impression & Plan Fever Critical Care Time I have personally spent greater than 30 minutes of critical care time in the direct management of this patient. This includes bedside care, interpretation of diagnostic studies, and testing, discussion with consultants, patient, and family members, and other required patient management activities. This 30 minutes is in excess of all separately billable procedures. Discharge Plan Visit Data *Final* Discharge Date/Time: 01/25/19 13:08 Chief Complaint: Fever Stated Complaint: FEVER, LIGHTHEADED ED Provider: Colin Beckwith Discharge Problem: Fever Patient Disposition: Still a Patient Discharge Instructions Interventions: ED Discharge Assessment Last Done: 01/25/19 13:08 Discharge Problem: Fever Qualifiers: Fever type: unspecified Qualified Code(s): R50.9 - Fever, unspecified The scribe's documentation has been prepared under my direction and personally reviewed by me in its entirety. I confirm that the note above accurately reflects all work, treatment, procedures, and medical decision making performed by me.
[2019-01-26] MEDS: ASPIRIN 81 MG ECTAB PO SCH (08:34)
--- NOTE | 2019-01-26 11:24 | Anesthesiology Progress Note ---
Date of Service January 26, 2019 Anesthesia Post Procedure Vital Signs Vital Signs: Temp Pulse Pulse Pulse Resp BP BP 01/26/19 10:54 36.6 C 83 17 113/74 01/26/19 07:08 36.4 C L 76 16 120/80 01/26/19 03:12 36.4 C L 76 16 115/70 01/25/19 23:59 88 01/25/19 23:13 36.4 C L 85 16 103/68 01/25/19 19:17 36.6 C 86 18 120/74 01/25/19 18:05 37.2 C 84 18 125/80 01/25/19 17:30 78 20 01/25/19 17:15 37.3 C 81 20 01/25/19 17:05 75 12 01/25/19 16:55 74 11 L 01/25/19 16:45 72 11 L 01/25/19 16:35 73 11 L 01/25/19 16:24 37.2 C 75 12 01/25/19 13:16 37.4 C 101 H 18 01/25/19 12:45 103 H 17 01/25/19 12:31 37.4 C 01/25/19 12:30 105 H 19 112/68 01/25/19 12:15 106 H 19 01/25/19 12:09 109 H 19 01/25/19 12:08 108 H 21 115/70 01/25/19 12:04 111 H 19 01/25/19 11:45 115 H 19 01/25/19 11:30 115 H 17 BP Pulse Ox 01/26/19 10:54 96 01/26/19 07:08 96 01/26/19 03:12 97 01/25/19 23:59 01/25/19 23:13 97 01/25/19 19:17 100 01/25/19 18:05 95 01/25/19 17:30 103/79 97 01/25/19 17:15 124/98 98 01/25/19 17:05 116/75 100 01/25/19 16:55 114/78 100 01/25/19 16:45 119/80 100 01/25/19 16:35 112/78 100 01/25/19 16:24 108/77 100 01/25/19 13:16 114/72 97 01/25/19 12:45 97 05/24/19 12:31 01/25/19 12:30 97 01/25/19 12:15 95 01/25/19 12:09 96 01/25/19 12:08 95 01/25/19 12:04 01/25/19 11:45 01/25/19 11:30 Pain Intensity Abdomen: Pain Intensity: 4 Transfer of Care Handoff Completed per policy Notes Mental Status: alert / awake / arousable and participated in evaluation Patient Amnestic to Procedure: Yes Nausea / Vomiting: adequately controlled Pain: adequately controlled Airway Patency, RR, SpO2: stable & adequate BP & HR: stable & adequate Hydration State: stable & adequate Anesthetic Complications: no major complications apparent and Pt Satisfied with anesthetic care
--- NOTE | 2019-01-26 12:40 | Urology Progress Note ---
Date of Service January 26, 2019 Assessment & Plan (1) Fever: continue antibiotics today . Possible voiding trialo in am and disposition pending culture results Present on Admission?: Yes Subjective pt feels better . Appetite back . No discomfort . Discussed cancer diagnosis Urine pink in bag Results & Data Vital Signs (Past 12 Hours) Vital Signs Temp Pulse Pulse Pulse Resp BP Pulse Ox 01/26/19 10:54 36.6 C 83 17 113/74 96 01/26/19 08:00 80 01/26/19 07:08 36.4 C L 76 16 120/80 96 01/26/19 03:12 36.4 C L 76 16 115/70 97 Laboratory Results wbc normal hemaglobin 12.4 (1) Fever Fever type: unspecified Qualified Code(s): R50.9 - Fever, unspecified
[2019-01-26] MEDS ORDERED: NITROGLYCERIN SL 0.4 MG/TAB TAB ONE (17:51)
[2019-01-26] MEDS: NITROGLYCERIN SL 0.4 MG/TAB TAB SL PRN ×2 (18:00→18:08)
[2019-01-26 18:37] LABS: Appearance Urine Cloudy (Clear); Bacteria Urine Automated Negative (Negative); Bilirubin Urine Negative (Negative); Blood Urine 3+ (Negative); Color Urine Red; Epithelial Cell Urine Auto >30 /lpf (0-5); Glucose Urine UA Negative (Negative); Ketones Urine Negative (Negative); Leukocyte Esterase Urine 2+ (Negative); Nitrite Urine Negative (Negative); Protein Urine 2+ (Negative); RBC Urine Automated >30 /hpf (0-4); Specific Gravity Urine 1.013 (1.000-1.030); Urobilinogen Urine Negative (Negative); pH Urine 5.5 (4.5-7.5)
[2019-01-26 18:54] LABS: Cast Urine Automated 0 /lpf (0-5); Renal Epithelial Cells Urine 0-5 /lpf (0-5)
--- NOTE | 2019-01-26 21:26 | Hospitalist Progress Note ---
Date of Service January 26, 2019 Assessment & Plan (1) Sepsis: 2nd to prostate abscess. s/p transurethral resection of abscess by Dr Ziegler - POD #1. blood/urine cx's thus far negative. JOEL resolved. fever resolved. leukocytosis improved. continue current IV abx -- follow cx's. appreciate urology consultation. Present on Admission?: Yes (2) Chest pain: pain present all day today. gave SL nitro x 3 w/o any change in symptoms. pain rated 4/[address] abd/pelvis there was contrast or debris in esophagus. thus, is pain GERD? zantac 150mg x 1. troponin negative. repeat troponin again late tonight. follow. EKG today with nonspecific inferior ST changes but mild only. Present on Admission?: No (3) Acute kidney injury: resolved. repeat BMP am Present on Admission?: Yes (4) Prostate abscess: s/p transurthral resection of abscess by Dr Ziegler, pod #1. appreciate his assistance. cultures thus far negative. remains on zosyn. andrew. defer management to urology. this occurred in setting of recent prostate bx. Present on Admission?: Yes (5) BPH (benign prostatic hyperplasia): consider flomax andrew in place at current Present on Admission?: Yes (6) History of CVA (cerebrovascular accident): should resume asa once ok with urology Present on Admission?: No (7) Hyperlipidemia: statin; can resume at d/c Present on Admission?: Yes (8) DVT prophylaxis: due to hematuria SCDs only for now Subjective patient feeling better today but c/o chest discomfort "all day". started this am. no radiation of pain. has never had pain at the [facility]. no dyspnea, nausea, vomiting. some belching / KANCHAN symptoms however. no jaw or arm pain. otherwise feels ok. Review of Systems Constitutional: + fatigue and + anorexia (feels full); no fever and no chills Respiratory: no cough and no dyspnea Cardiovascular: as per Subjective / HPI and + chest pain; no radiating jaw, neck or arm pain, no dyspnea on exertion and no edema Gastrointestinal: + bloating Physical Exam Constitutional: well developed and well nourished; no acute distress ENMT: external ear and nose normal, oropharynx normal Respiratory: normal respiratory effort, lungs clear to auscultation Cardiovascular: Rate/Rhythm: regular rate and regular rhythm Heart Sounds: normal S1 and normal S2; no murmur Vessels: posterior tibial pulses present and dorsalis pedis pulses present; no JVD Extremities: no edema Chest (Breasts): Additional Comments: no reproducible chest wall pain Gastrointestinal (Abdomen): Inspection/Auscultation: + abdomen distended and normal bowel sounds Percussion/Palpation: abdomen nontender, no guarding and no hepatosplenomegaly Psychiatric: A+Ox3, euthymic affect Genitourinary: andrew with bloody urine Results & Data Vital Signs (Past 12 Hours) Vital Signs Temp Pulse Pulse Resp BP BP Pulse Ox 01/26/19 19:09 36.5 C 80 20 94/64 L 98 01/26/19 18:10 90 125/73 01/26/19 18:04 72 112/78 01/26/19 15:27 36.9 C 81 20 111/74 99 01/26/19 10:54 36.6 C 83 17 113/74 96 Laboratory Results Laboratory Results - last 24 hr 01/26/19 01/26/19 01/26/19 05:46 05:46 16:30 WBC 10.48 RBC 3.76 L Hgb 12.4 L Hct 36.1 L MCV 96.0 MCH 33.0 MCHC 34.3 RDW Std Deviation 46.4 H RDW Coeff of Babak 13.1 Plt Count 193 MPV 9.2 Immature Gran % (Auto) 0.3 Neut % (Auto) 81.8 Lymph % (Auto) 11.3 [place] % (Auto) 6.6 Eos % (Auto) 0.0 Baso % (Auto) 0.0 Immature Gran # (Auto) 0.03 H Neut # (Auto) 8.58 H Lymph # (Auto) 1.18 L [place] # (Auto) 0.69 H Eos # (Auto) 0.00 Baso # (Auto) 0.00 Sodium 139 Potassium 4.1 D Chloride 110 H Carbon Dioxide 23 Anion Gap 6.0 BUN 12 Creatinine 1.01 Est Cr Clr Drug Dosing 79.5 Est GFR ( Amer) 86.3 Est GFR (Non-Af Amer) 74.5 BUN/Creatinine Ratio 11.8 Glucose 128 H Calcium 8.6 Troponin I Urine Color Red Urine Appearance Cloudy A Urine pH 5.5 Ur Specific [place] 1.013 Urine Protein 2+ H Urine Glucose (UA) Negative Urine Ketones Negative Urine Blood 3+ H Urine Nitrite Negative Urine Bilirubin Negative Urine Urobilinogen Negative Ur Leukocyte Esterase 2+ H Urine WBC (Auto) 10-30 H Urine RBC (Auto) >30 H U Hyaline Cast (Auto) 0 U Epithel Cells (Auto) >30 H Urine Bacteria (Auto) Negative Ur Renal Epithelial Cell 0-5 01/26/19 01/26/19 17:38 22:16 WBC RBC Hgb Hct MCV MCH MCHC RDW Std Deviation RDW Coeff of Babak Plt Count MPV Immature Gran % (Auto) Neut % (Auto) Lymph % (Auto) [place] % (Auto) Eos % (Auto) Baso % (Auto) Immature Gran # (Auto) Neut # (Auto) Lymph # (Auto) [place] # (Auto) Eos # (Auto) Baso # (Auto) Sodium Potassium Chloride Carbon Dioxide Anion Gap BUN Creatinine Est Cr Clr Drug Dosing Est GFR ( Amer) Est GFR (Non-Af Amer) BUN/Creatinine Ratio Glucose Calcium Troponin I < 0.015 < 0.015 Urine Color Urine Appearance Urine pH Ur Specific [place] Urine Protein Urine Glucose (UA) Urine Ketones Urine Blood Urine Nitrite Urine Bilirubin Urine Urobilinogen Ur Leukocyte Esterase Urine WBC (Auto) Urine RBC (Auto) U Hyaline Cast (Auto) U Epithel Cells (Auto) Urine Bacteria (Auto) Ur Renal Epithelial Cell Diagnostic Findings blood/urine cx's negative (1) Sepsis Sepsis type: sepsis due to unspecified organism Qualified Code(s): A41.9 - Sepsis, unspecified organism (2) BPH (benign prostatic hyperplasia) Lower urinary tract symptom presence: symptoms present Lower urinary tract symptom detail: unspecified Qualified Code(s): N40.1 - Benign prostatic hyperplasia with lower urinary tract symptoms (3) Hyperlipidemia Hyperlipidemia type: mixed hyperlipidemia Qualified Code(s): E78.2 - Mixed hyperlipidemia (4) Chest pain Chest pain type: other chest pain Qualified Code(s): R07.89 - Other chest pain; R07.8 - Other chest pain
[2019-01-27] MEDS: PIPERACILLIN/TAZOBACTAM 3.375 GM in DEXTROSE 5% 100 ML IV SCH ×3 (05:10→20:17)
[2019-01-27 06:32] LABS: Basophils # (auto) 0.01 K/uL (0-0.2); Basophils % (auto) 0.1 %; Eosinophils # (auto) 0.03 K/uL (0-0.5); Eosinophils % (auto) 0.4 %; Hematocrit (blood only) 37.5 % (42-52); Immature Granulocytes # (auto) 0.05 K/uL (0.00-0.02); Immature Granulocytes % (auto) 0.6 %; Lymphocytes # (auto) 1.16 K/uL (1.2-3.4); Lymphocytes % (auto) 14.7 %; Mean Corpuscular Hgb Conc 34.7 g/dL (32-36); Mean Corpuscular Volume 96.6 fL (80-100); Mean Platelet Volume 9.4 fL (7.4-10.4); Monocytes # (auto) 0.57 K/uL (0.11-0.59); Monocytes % (auto) 7.2 %; Neutrophils # (auto) 6.05 K/uL (1.4-6.5); Platelet Count 234 K/uL (130-400); RDW Coefficient of Variation 13.3 % (11.5-14.5); Red Blood Count 3.88 M/uL (4.7-6.1); White Blood Count 7.87 K/uL (4.8-10.8)
[2019-01-27 06:58] LABS: BUN Creatinine Ratio 9.5 (10-20); Calcium 8.5 mg/dl (8.5-10.1); Creatinine Clr Calc Pharmacy 69.5 ml/min; Potassium 3.8 mmol/L (3.5-5.1)
[2019-01-27] MEDS: ACETAMINOPHEN 325 MG TAB PO PRN ×2 (07:53→23:43)
[2019-01-27] MEDS: ASPIRIN 81 MG ECTAB PO SCH (07:54)
[2019-01-27] MEDS ORDERED: VANCOMYCIN HCL 1,000 MG in SODIUM CHLORIDE 0.9% 250 ML IV SCH (08:15)
[2019-01-27] MEDS ORDERED: VANCOMYCIN CONSULT ACTIVE PRN (08:15)
[2019-01-27] MEDS ORDERED: VANCOMYCIN HCL 2,000 MG in SODIUM CHLORIDE 0.9% 500 ML IV SCH (08:45)
--- NOTE | 2019-01-27 08:59 | Pharmacy Report ---
Pharmacy Abx Initial Consult - Date of Service January 27, 2019 - Pharmacy Dosing Scope Date of Consult: 01/27/19 Consultation requested by: Dr. Jorgensen Pharmacy is consulted to initiate vancomycin and Zosyn IV dosing therapy, order appropriate labs and adjust drug dose/frequency. - Subjective The patient is a 73 year old M admitted on 01/25/19 13:13. - Objective Height: 5 ft 10 in Weight: 100.9 kg Vital Signs (Past 12hrs): Vital Signs Temp Pulse Pulse Resp BP Pulse Ox 01/27/19 07:25 39.2 C H 116 H 26 H 145/89 H 99 01/27/19 07:15 39.2 C H 117 H 26 H 145/89 H 99 01/27/19 03:53 36.7 C 77 20 131/79 98 01/26/19 23:14 36.7 C 78 20 116/75 97 Lab Results (24hrs): Laboratory Tests (24 Hours) 01/27/19 01/27/19 05:55 05:55 WBC 7.87 Neut # (Auto) 6.05 Creatinine 1.16 Est Cr Clr Drug Dosing 69.5 Micro Results: 01/27/19 08:31 Aerobic Blood Culture - Pending Blood Anaerobic Blood Culture - Pending 01/27/19 08:26 Aerobic Blood Culture - Pending Blood Anaerobic Blood Culture - Pending - Assessment & Plan Assessment 73 year old M receiving empiric vancomycin and Zosyn due to fever likely secondary to a prostate abscess (s/p prostate biopsy on 01/23) 01/25: patient underwent transurethral resection of abscess (no definitive abscess, but toothpaste like pus was seen) Blood cultures x 2 (01/25) - no growth at 24 hours Urine culture - no growth (<1000 colonies/mL) Blood cultures x 2 (01/27) - pending Leukocytosis resolving (15.4 on admission -> 7.87 today) Tmax this am (01/27): 39.2 (H) Plan Vancomycin IV * Estimated PK Parameters: Vd 0.6 L/kg, Victorino 0.062 hr-1, t1/2 11.2 hr * Loading dose: 2000 mg (20 mg/kg) * Maintenance dose: 1500 mg IV (15 mg/kg) every 14 hours * Goal trough level for this empiric treatment will be 15 to 20 mcg/mL * Trough level will be ordered if patient is to stay on vancomycin longer than 48 hours * Serum creatinine ordered for tomorrow (01/28) to assess renal function Piperacillin/tazobactam * 4.5 g bolus administered over 30 minutes, then 3.375 g IV extended infusion every 8 hours for CrCl greater than 20 mL/min Pharmacy will continue to follow and will adjust dose/frequency as necessary. Thank you.
[2019-01-27 11:34] LABS: Appearance Urine Clear (Clear); Bacteria Urine Automated Negative (Negative); Bilirubin Urine Negative (Negative); Blood Urine 3+ (Negative); Color Urine Dark Yellow; Epithelial Cell Urine Auto >30 /lpf (0-5); Glucose Urine UA Negative (Negative); Ketones Urine Negative (Negative); Leukocyte Esterase Urine 2+ (Negative); Nitrite Urine Negative (Negative); Protein Urine 2+ (Negative); RBC Urine Automated >30 /hpf (0-4); Specific Gravity Urine 1.027 (1.000-1.030); Urobilinogen Urine Negative (Negative); WBC Urine Automated >30 /hpf (0-5); pH Urine 6.5 (4.5-7.5)
--- NOTE | 2019-01-27 11:50 | Urology Progress Note ---
Date of Service January 27, 2019 Subjective Pt without pain . Spiked temperature to 39.2 this am and is tachycardic . All cultures reamain negative and new blood pressure drawn . Pt ct reviewed . Given central location of density I feel sure I resected infected tissue but did not find a true abscess . His wbc is normal today and he has judy appetite which he did not have preop . Discussed with radiology . Will rescan him to make sure ureters draining and prostate does not look worse . Radiology sugested ct with andrew and with contrast Review of Systems Genitourinary: + hematuria (andrew inplace blood tinged ) Results & Data Vital Signs (Past 12 Hours) Vital Signs Temp Pulse Pulse Resp BP Pulse Ox 01/27/19 11:36 38.3 C H 117 H 24 131/82 98 01/27/19 10:37 37.9 C H 01/27/19 07:25 39.2 C H 116 H 26 H 145/89 H 99 01/27/19 07:15 39.2 C H 117 H 26 H 145/89 H 99 01/27/19 03:53 36.7 C 77 20 131/79 98
[2019-01-27] MEDS ORDERED: IOVERSOL 100ml IV PRN (12:16)
[2019-01-27] MEDS ORDERED: GENTAMICIN CONSULT ACTIVE PRN (12:20)
--- NOTE | 2019-01-27 12:28 | XRay Report ---
XR chest 2V routine HISTORY: fever COMPARISON: Chest 01/25/2019. FINDINGS: The lungs are clear. Cardiac silhouette is normal in size. No pleural effusions. No pneumot horax. IMPRESSION: No acute process. Electronically signed by: Oj Rodriguez M.D. 01/27/2019 12:27 PM
--- NOTE | 2019-01-27 12:50 | CT Scan Report ---
ABDOMEN AND PELVIS CT WITH IV CONTRAST CT DOSE: 863.14 mGy.cm HISTORY: history of prostatic abscess recurrent fever TECHNIQUE: Multiaxial CT images of the abdomen and pelvis were performed following the use of intrave nous contrast. A dose lowering technique was utilized adhering to the principles of ALARA. COMPARISON STUDY: Abdomen and pelvis CT 01/25/2019. FINDINGS: Motion artifact. The lung bases are essentially clear. No pneumoperitoneum. No pneumatosis. No suspicious lytic or blastic osseous lesions. The main portal vein is patent. No retroperitoneal l ymphadenopathy. Normal caliber abdominal aorta. The upper abdominal structures are partially obscured by motion artifact. However, the liver, gallbladder, spleen, adrenal glands, and pancreas appear wit hin normal limits. No hydronephrosis. The kidneys appear to enhance normally. Trace right perinephric fluid has slightly progressed. No bowel wall thickening or obstruction. Normal appendix. Bladder wal l thickening and adjacent inflammatory changes noted. There is a Gibson catheter within the bladder an d a small amount of gas. The bladder is decompressed. The focal hypodense area within the prostate gl and has resolved in the interval. No loculated fluid collections to suggest an abscess. IMPRESSION: 1. Interval resolution of the focal hypodense area within the prostate gland. No loculated fluid adán ections to suggest an abscess at this time. 2. Bladder wall thickening and adjacent inflammatory change is noted. This could be due to the recent instrumentation or a possible cystitis. Correlation with urinalysis recommended. 3. The kidneys appear to enhance normally. There is trace right perinephric edema which has slightly progressed. A developing right-sided pyelonephritis is considered less likely but cannot be excluded. 4. No hydronephrosis. 5. No bowel wall thickening or obstruction. Electronically signed by: Oj Rodriguez M.D. 01/27/2019 12:49 PM
[2019-01-27] MEDS ORDERED: GENTAMICIN SULFATE 420 MG in DEXTROSE 5% 100 ML IV SCH (13:00)
--- NOTE | 2019-01-27 13:12 | Urology Progress Note ---
Date of Service January 27, 2019 Subjective Pt with fever post op day 2 from TURP for prostate abscess. Was taken off gentamycin and raises question of resistance and coverage with unasyn alone given repeat CT does not show abscess in prostate or obvious abdominal process and chest xray is normal Discussed resistance possibility with Dr. Noel and also could consider reaction to antibiotic but this seems unlikely Results & Data Vital Signs (Past 12 Hours) Vital Signs Temp Pulse Pulse Resp BP Pulse Ox 01/27/19 11:36 38.3 C H 117 H 24 131/82 98 01/27/19 10:37 37.9 C H 01/27/19 07:25 39.2 C H 116 H 26 H 145/89 H 99 01/27/19 07:15 39.2 C H 117 H 26 H 145/89 H 99 01/27/19 03:53 36.7 C 77 20 131/79 98
[2019-01-27] MEDS: GENTAMICIN SULFATE 420 MG in DEXTROSE 5% 100 ML IV SCH (14:01)
--- NOTE | 2019-01-27 19:39 | Hospitalist Progress Note ---
Date of Service January 27, 2019 Assessment & Plan (1) Sepsis: 2nd to prostate abscess. s/p transurethral resection of abscess by Dr Ziegler - POD #2. blood/urine cx's negative. JOEL resolved. fever had resolved. no leukocytosis. Had recurrent fever this am. Repeat u/a, urine cx, blood cx's sent. CXR w/o infiltrates. Abd CT w/o recurrent prostate abscess or other pathology to explain recurrent fever. Despite recurrent fever patient still looks clinically well. Prostate still likely source, however, in light of recent surgery. To cover for possibility of gram negative resistance to zosyn Dr Ziegler and I added gent. Added vanco for MRSA coverage. Follow all cultures. appreciate urology assistance. (2) Chest pain: trops negative yesterday in setting of pain last 12+ hours. EKG unremarkable. had prominent GI symptoms yesterday - likely GERD. H2 quinn. no recurrent symptoms. (3) Acute kidney injury: resolved. repeat BMP am (4) Prostate abscess: s/p transurthral resection of abscess by Dr Ziegler, pod #2. appreciate his assistance. cultures thus far negative. remains on zosyn. andrew. defer management to urology. this occurred in setting of recent prostate bx. see above in "sepsis" (5) BPH (benign prostatic hyperplasia): consider flomax - defer that to urology however andrew in place at current (6) History of CVA (cerebrovascular accident): should resume asa once ok with urology (7) Hyperlipidemia: statin; can resume at d/c (8) GERD (gastroesophageal reflux disease): H2 quinn - see chest pain above (9) Abdominal bloating: nothing significant on CT today passing flatus and stool follow (10) DVT prophylaxis: due to hematuria SCDs only for now Subjective patient had temp to over 39 degrees this am. despite such he has good appetite. denies any further chest pain - this resolved last evening. did have belching / hiccups yesterday - these, too, are resolved. no cough or dyspnea. no abdominal pain. some bloating. +flatus. Review of Systems Constitutional: + fever; no anorexia Respiratory: no cough, no dyspnea and no dyspnea on exertion Cardiovascular: no chest pain Gastrointestinal: + bloating and + early satiety; no abdominal pain, no nausea, no vomiting and no constipation (had 2 bms today) Physical Exam Constitutional: well developed and well nourished; no acute distress eating lunch during the visit ENMT: external ear and nose normal, oropharynx normal Respiratory: normal respiratory effort, lungs clear to auscultation Cardiovascular: Rate/Rhythm: regular rate and regular rhythm Heart Sounds: normal S1 and normal S2; no murmur Vessels: posterior tibial pulses present and dorsalis pedis pulses present; no JVD Extremities: no edema Gastrointestinal (Abdomen): Inspection/Auscultation: + abdomen distended (similar to yesterday) and normal bowel sounds Percussion/Palpation: abdomen nontender, no guarding and no hepatosplenomegaly Skin: no rashes, warm and dry Psychiatric: A+Ox3, euthymic affect Genitourinary: urine in andrew bag more clear today Results & Data Vital Signs (Past 12 Hours) Vital Signs Temp Pulse Pulse Resp BP Pulse Ox 01/27/19 15:09 37.2 C 99 H 20 109/72 95 01/27/19 14:51 37.8 C H 01/27/19 11:36 38.3 C H 117 H 24 131/82 98 01/27/19 10:37 37.9 C H Laboratory Results Laboratory Results - last 24 hr 01/26/19 01/27/19 01/27/19 22:16 05:55 05:55 WBC 7.87 RBC 3.88 L Hgb 13.0 L Hct 37.5 L MCV 96.6 MCH 33.5 MCHC 34.7 RDW Std Deviation 47.0 H RDW Coeff of Babak 13.3 Plt Count 234 MPV 9.4 Immature Gran % (Auto) 0.6 Neut % (Auto) 77.0 Lymph % (Auto) 14.7 [place] % (Auto) 7.2 Eos % (Auto) 0.4 Baso % (Auto) 0.1 Immature Gran # (Auto) 0.05 H Neut # (Auto) 6.05 Lymph # (Auto) 1.16 L [place] # (Auto) 0.57 Eos # (Auto) 0.03 Baso # (Auto) 0.01 Sodium 142 Potassium 3.8 Chloride 108 H Carbon Dioxide 27 Anion Gap 7.0 BUN 11 Creatinine 1.16 Est Cr Clr Drug Dosing 69.5 Est GFR ( Amer) 73.0 Est GFR (Non-Af Amer) 63.0 BUN/Creatinine Ratio 9.5 L Glucose 110 H Calcium 8.5 Troponin I < 0.015 Urine Color Urine Appearance Urine pH Ur Specific [place] Urine Protein Urine Glucose (UA) Urine Ketones Urine Blood Urine Nitrite Urine Bilirubin Urine Urobilinogen Ur Leukocyte Esterase Urine WBC (Auto) Urine RBC (Auto) U Epithel Cells (Auto) Urine Bacteria (Auto) 01/27/19 11:00 WBC RBC Hgb Hct MCV MCH MCHC RDW Std Deviation RDW Coeff of Babak Plt Count MPV Immature Gran % (Auto) Neut % (Auto) Lymph % (Auto) [place] % (Auto) Eos % (Auto) Baso % (Auto) Immature Gran # (Auto) Neut # (Auto) Lymph # (Auto) [place] # (Auto) Eos # (Auto) Baso # (Auto) Sodium Potassium Chloride Carbon Dioxide Anion Gap BUN Creatinine Est Cr Clr Drug Dosing Est GFR ( Amer) Est GFR (Non-Af Amer) BUN/Creatinine Ratio Glucose Calcium Troponin I Urine Color Dark Yellow Urine Appearance Clear Urine pH 6.5 Ur Specific [place] 1.027 Urine Protein 2+ H Urine Glucose (UA) Negative Urine Ketones Negative Urine Blood 3+ H Urine Nitrite Negative Urine Bilirubin Negative Urine Urobilinogen Negative Ur Leukocyte Esterase 2+ H Urine WBC (Auto) >30 H Urine RBC (Auto) >30 H U Epithel Cells (Auto) >30 H Urine Bacteria (Auto) Negative Diagnostic Findings blood/urine cx's neg CT abd/pelvis - no prostate abscess; no other source of fever cxr - no infiltrates (1) Sepsis Sepsis type: sepsis due to unspecified organism Qualified Code(s): A41.9 - Sepsis, unspecified organism (2) Chest pain Chest pain type: other chest pain Qualified Code(s): R07.89 - Other chest pain; R07.8 - Other chest pain (3) BPH (benign prostatic hyperplasia) Lower urinary tract symptom presence: symptoms present Lower urinary tract symptom detail: unspecified Qualified Code(s): N40.1 - Benign prostatic hyperplasia with lower urinary tract symptoms (4) Hyperlipidemia Hyperlipidemia type: mixed hyperlipidemia Qualified Code(s): E78.2 - Mixed hyperlipidemia (5) GERD (gastroesophageal reflux disease) Esophagitis presence: esophagitis presence not specified Qualified Code(s): K21.9 - Gastro-esophageal reflux disease without esophagitis
--- NOTE | 2019-01-27 21:24 | Operative Report ---
DATE OF OPERATION: 01/25/2019 PREOPERATIVE DIAGNOSIS: Prostatic abscess and urosepsis. POSTOPERATIVE DIAGNOSIS: Severe acute prostatitis with no definite abscess found. PROCEDURE: TURP. SURGEON: Angelo Ziegler MD INDICATIONS: The patient is a 73-year-old male status post prostate biopsy 3 days prior to this. The patient began to have fever and chills and feeling badly the day after the procedure when he was on Cipro starting the day before the procedure. He presented to the Emergency Room with chills, fever, white blood cell count of 15,000, elevated lactic acid, and CAT scan which suggested either fluid collection or some lucency in the right anterior lateral closest to the bladder and the prostate. Because of this and because of the suggestion of an abscess, the patient was taken directly to the operating room from the Emergency Room. DESCRIPTION OF THE PROCEDURE: The patient was taken to the operating room, had Venodyne stockings placed. He had been on antibiotics, started in the Emergency Room, was prepped and draped in the usual sterile fashion. First a catheter was placed and a culture was taken of the urine because it was not clear that that was done in the Emergency Room. Next, a cystoscopy was performed and the urine was somewhat bloody. It was difficult to clearly see the bladder, but no bladder tumor was seen. The patient had a moderately large obstructing prostate that appeared inflamed. At this point, a resectoscope was placed, 24[place], using a bipolar button because I was concerned there would be a significant amount of inflammation and bleeding and he had a very elevated bladder neck. I took down the bladder neck being careful to avoid the ureteral orifices. I did this so that I could introduce the scope and then I placed the patient in some Trendelenburg. Then I focused my attention on the right lobe of the prostate beginning at the bladder neck. Using the bipolar, I took this down all the way down on the right side of the prostate to initiate a TUR. I began to notice some oozing from the prostate tissue as pus oozed in almost a Welsh cheese kind of way through various parts of the prostate as I was doing this. I then began to do a resection of this area and again pushing on it with the resectoscope, we could see some oozing of pus from the right side of the prostate but no definite pocket of pus was found. At this point, the left side was somewhat asymmetrically pushing in and because I had not found a pocket of pus, I resected the left side starting with the button and then using a resectoscope as well. Because again I never found any definite resection, I re-resected the right side starting more at the base and going down towards the apex and also took some anterior tissue, but again having reviewed the CT scan with the radiologist, it appeared that the area in question was right near the surface near the midline where the urethra should be on the right side. I clearly resected 8-10 grams of tissue but after doing a significant resection with the button and would go back and forth to control the bleeding, but never found a definite area of pus; in one area I felt it was getting close to the capsule on the right side and the middle. Because of this, after about an hour and 15-20 minutes of resection and I did not want to do further damage, I was not seeing clear Welsh cheese effect any more of pus coming when I pressed on the right side, I controlled the bleeding and placed a 22-[place] Citizen catheter with a catheter guide with a 30 mL balloon. The urine was clear before completing the procedure and all the chips were out of the bladder and the urine was relatively clear and there was no evidence of significant bleeding. The patient was transported to the recovery room in stable condition. In the recovery room, the patient felt markedly better, said that he was hungry and felt better than he had prior to the surgery. I attest to the content of the Intraoperative Record and any orders documented therein. Any exceptions are noted below. FRANK
[2019-01-27] MEDS ORDERED: VANCOMYCIN HCL 1,500 MG in SODIUM CHLORIDE 0.9% 250 ML IV SCH (23:00)
[2019-01-28] MEDS: VANCOMYCIN HCL 1,500 MG in SODIUM CHLORIDE 0.9% 500 ML IV SCH ×2 (00:47→14:33)
[2019-01-28] MEDS: PIPERACILLIN/TAZOBACTAM 3.375 GM in DEXTROSE 5% 100 ML IV SCH ×2 (05:35→14:33)
[2019-01-28 06:16] LABS: Basophils # (auto) 0.02 K/uL (0-0.2); Basophils % (auto) 0.3 %; Eosinophils % (auto) 1.4 %; Hematocrit (blood only) 34.8 % (42-52); Hemoglobin 11.8 g/dL (14.0-18.0); Immature Granulocytes # (auto) 0.05 K/uL (0.00-0.02); Immature Granulocytes % (auto) 0.7 %; Lymphocytes # (auto) 1.55 K/uL (1.2-3.4); Lymphocytes % (auto) 22.2 %; Mean Corpuscular Hgb Conc 33.9 g/dL (32-36); Mean Corpuscular Volume 96.7 fL (80-100); Mean Platelet Volume 8.9 fL (7.4-10.4); Monocytes # (auto) 0.74 K/uL (0.11-0.59); Monocytes % (auto) 10.6 %; Neutrophils # (auto) 4.51 K/uL (1.4-6.5); Neutrophils % (auto) 64.8 %; Platelet Count 222 K/uL (130-400); RDW Coefficient of Variation 13.5 % (11.5-14.5); RDW Standard Deviation 47.9 fL (36.4-46.3); White Blood Count 6.97 K/uL (4.8-10.8)
[2019-01-28 07:06] LABS: BUN Creatinine Ratio 7.9 (10-20); Calcium 7.7 mg/dl (8.5-10.1); Creatinine Clr Calc Pharmacy 68.5 ml/min; Est GFR (African American) 72.3; Est GFR (Non-African American) 62.4; Potassium 3.2 mmol/L (3.5-5.1)
[2019-01-28] MEDS: ASPIRIN 81 MG ECTAB PO SCH (08:57)
--- NOTE | 2019-01-28 10:25 | Urology Progress Note ---
Date of Service January 28, 2019 Subjective Pt feels better today . Afebrile and much better since gentamycin and vancomycin. Sugests he is resistant to ciprofloxacin which he was on at time of biopsy and unasyn . Discussed with Dr. Bello . Get ID to decide what patient should get at group home . Feel he will need 10 to 14 days of Iv antibiotic . Discussed cancer biopsy with patient and would consider either active surveillance or radiation or intermittent hormonal therapy . Might benefit from oncotype dx . Voiding trial in AM prior to discharge Physical Exam Physical Exam: urine pink Results & Data Vital Signs (Past 12 Hours) Vital Signs Temp Pulse Resp BP Pulse Ox 01/28/19 07:09 37.0 C 77 19 130/74 100 01/28/19 04:00 36.8 C 81 17 112/75 97 01/28/19 01:02 36.8 C 01/27/19 23:38 38.3 C H 91 H 19 110/75 98 Laboratory Results hct 34.8 down from 37 .5 WBC 6.97
--- NOTE | 2019-01-28 10:53 | Pharmacy Report ---
Pharmacy Abx Dose Progress Nt - Date of Service January 28, 2019 - Pharmacy Dosing Scope The patient is currently receiving the following antimicrobial agents per Pharmacy consult: Vancomycin 1500 mg IV every 14hours Gentamicin 420mg IV Q24 hours Zosyn 3.375 grams IV Q8H Extended interval dosing - Objective Vital Signs (Past 12hrs): Vital Signs Temp Pulse Resp BP Pulse Ox 01/28/19 07:09 37.0 C 77 19 130/74 100 01/28/19 04:00 36.8 C 81 17 112/75 97 01/28/19 01:02 36.8 C 01/27/19 23:38 38.3 C H 91 H 19 110/75 98 Lab Results (24hrs): Laboratory Tests (24 Hours) 01/28/19 01/28/19 01/27/19 05:44 05:44 20:59 WBC 6.97 Neut # (Auto) 4.51 Creatinine 1.17 Est Cr Clr Drug Dosing 68.5 Random Gentamicin 4.10 Micro Results: 01/25/19 14:00 Urine Culture - Final Urine,Straight Cath No growth - less than 1,000 colonies/mL. - Assessment & Plan Assessment 73 year old M receiving IV Vancomycin, Gentamicin, and Zosyn for treatment of sepsis secondary to prostate abscess. s/p transurethral resection of abscess by Dr Ziegler - POD3 Blood & urine cultures negative. JOLE resolved, afebrile, no leukocytosis. Day # 4 of Zosyn day #2 of Vancomycin (currently only ordered for 48 hours empiric dosing) Day #2 of Gentamicin Plan Vancomycin IV * Continue dose of 1500 mg IV every 14 hours * No levels ordered unless therapy continues past 48 hours Piperacillin/tazobactam * Continue 3.375 g IV extended infusion every 8 hours for CrCl greater than 20 mL/min Gentamicin * Patient meets criteria for extended-interval aminoglycoside dosing per the Urban-Jad nomogram (indicated for UTI) * Random level of 4.1 mcg/ml drawn 7 hours after start of infusion indicates a dosing interval of every 24 hours. * Continue 420 mg (5 mg/kg) every 24 hours. * Dosage based on adjusted body weight for patients weighing > 120% of ideal body weight. Pharmacy will continue to follow and will adjust dose/frequency as necessary. Thank you.
--- NOTE | 2019-01-28 10:58 | Hospitalist Progress Note ---
Date of Service January 28, 2019 Assessment & Plan (1) Prostate abscess: Occurred in setting of recent prostate bx. S/p transurethral resection of prostate (TURP) and abscess by Dr Ziegler, pod #2. - Cultures thus far negative. - Presently on vanc/gent/Zosyn - Tapered on 01/26, but restarted on vanc/gent on 01/27 for temp of 39.2. (Repeat CT a/p on 01/27 did not show further infectious source.) - Possibly d/c Gibson per urology. - Ordered PICC line for 10-14 days of IV abx - ID consulted (2) Sepsis: 2nd to prostate abscess. - Resolved as of 01/27 (3) Chest pain: Trops negative on 01/26 in setting of pain last 12+ hours. EKG unremarkable. Had prominent GI symptoms yesterday - likely GERD. - H2 quinn. - No recurrent symptoms (4) Acute kidney injury: Cr. up to 1.5 on admission; down to 1.0 by 01/26. Resolved. - Monitored Cr while on vanc (5) BPH (benign prostatic hyperplasia): Gibson in place at present. - Defer to urology on removal and voiding trial (6) History of CVA (cerebrovascular accident): Temporarily held ASA; as of 01/26 back on it. (7) Hyperlipidemia: On statin; can resume at d/c. (8) GERD (gastroesophageal reflux disease): H2 quinn - see chest pain above (9) DVT prophylaxis: Due to hematuria SCDs only for now. Subjective No major concerns today. Denies any overnight fever, though he did have a slight temp in the evening. Review of Systems Review of Systems: All systems reviewed & are unremarkable except as noted in HPI & below Physical Exam Constitutional: WD/WN, vitals as above well developed and well nourished Eyes: normal visual burden by confrontation and + anicteric sclerae ENMT: external ear and nose normal, oropharynx normal Neck: normal visual inspection and trachea midline Respiratory: normal respiratory effort, lungs clear to auscultation Cardiovascular: Rate/Rhythm: regular rate and regular rhythm Heart Sounds: normal S1 and normal S2; no murmur Vessels: posterior tibial pulses present and dorsalis pedis pulses present; no JVD Extremities: no edema Gastrointestinal (Abdomen): Inspection/Auscultation: normal bowel sounds Percussion/Palpation: abdomen soft; abdomen nontender, no guarding and no hepatosplenomegaly Musculoskeletal: Head/Neck/Chest: normocephalic and head atraumatic Skin: no rashes, warm and dry Neurologic: awake; not confused Speech / Cognition: normal speech Psychiatric: A+Ox3, euthymic affect Results & Data Vital Signs (Past 12 Hours) Vital Signs Temp Pulse Resp BP Pulse Ox 01/28/19 07:09 37.0 C 77 19 130/74 100 01/28/19 04:00 36.8 C 81 17 112/75 97 01/28/19 01:02 36.8 C 01/27/19 23:38 38.3 C H 91 H 19 110/75 98 (1) Sepsis Sepsis type: sepsis due to unspecified organism Qualified Code(s): A41.9 - Sepsis, unspecified organism (2) Chest pain Chest pain type: other chest pain Qualified Code(s): R07.89 - Other chest pain; R07.8 - Other chest pain (3) BPH (benign prostatic hyperplasia) Lower urinary tract symptom presence: symptoms present Lower urinary tract symptom detail: unspecified Qualified Code(s): N40.1 - Benign prostatic hyperplasia with lower urinary tract symptoms (4) Hyperlipidemia Hyperlipidemia type: mixed hyperlipidemia Qualified Code(s): E78.2 - Mixed hyperlipidemia (5) GERD (gastroesophageal reflux disease) Esophagitis presence: esophagitis presence not specified Qualified Code(s): K21.9 - Gastro-esophageal reflux disease without esophagitis
[2019-01-28] MEDS: ACETAMINOPHEN 325 MG TAB PO PRN ×2 (11:44→22:27)
[2019-01-28] MEDS: GENTAMICIN SULFATE 420 MG in DEXTROSE 5% 100 ML IV SCH (14:33)
--- NOTE | 2019-01-28 15:52 | Infectious Disease Consult ---
Date of Consultation January 28, 2019 Assessment & Plan (1) Prostate abscess: Patient with prostatitis and developing prostate abscess following biopsy, worry about ESBL producing gram-negative given lack of response to ciprofloxacin. Will change patient to IV ertapenem 1 g daily, and would rec ommend 14-day course. Will follow. History of Present Illness Reason for Consultation: Antibiotic recommendations for prostate infection Attending Physician: Lino Bello MD History of Present Illness 73-year-old male with history of hyperlipidemia, GERD, prior CVA, BPH, who underwent prostate biopsy 3 days ago, then developed fever along with hematuria. He was admitted to the hospital and found on CT scan to have evidence of developing prostatic abscess. He is now undergone surgical exploration without true abscess being found. Patient has received daptomycin and Zosyn, now on Zosyn, gentamicin, daptomycin. Blood cultures are negative to date. Feeling better, currently afebrile and hemodynamically stable. 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 Beliefs That Will Affect Care: None Current Living Situation: Other Current Living Situation Comment: [facility] Other Information That Helps Us Care for You: No Feels Safe at Home: Yes Safety Concerns: Feels Safe At This Time Smoking Status: Former smoker Smoking End Date: 2001 Second Hand Exposure: No Hx Alcohol Use: No Hx Substance Use: No Review of Systems Review of Systems: All systems reviewed & are unremarkable except as noted in HPI & below Physical Exam Constitutional: WD/WN, vitals as above comfortable; no acute distress Eyes: PERRL, conjunctivae normal, anicteric sclerae ENMT: external ear and nose normal, oropharynx normal Neck: trachea midline, no thyromegaly neck nontender Respiratory: normal respiratory effort, lungs clear to auscultation normal percussion; does not use accessory muscles Cardiovascular: Rate/Rhythm: regular rate and regular rhythm Heart Sounds: normal S1 and normal S2; no gallop, no murmur and no cardiac rub Vessels: normal peripheral pulses; no JVD Gastrointestinal (Abdomen): normal bowel sounds, soft, nontender, no hepatosplenomegaly Musculoskeletal: no cyanosis or clubbing, extremities motor strength 5/5 Spine: thoracic spine normal to inspection and lumbar spine normal to inspection; no cervical spinal tenderness Skin: no rashes, warm and dry normal turgor; no lesions Neurologic: patellar DTR's 2+ bilat, sensation intact no focal motor deficits Psychiatric: A+Ox3, euthymic affect Orientation: cooperative Lymphatic: no cervical or axillary lymphadenopathy no inguinal lymphadenopathy Results & Data Vital Signs (Past 12 Hours) Vital Signs Temp Pulse Pulse Resp BP Pulse Ox 01/28/19 15:33 36.8 C 79 20 120/74 100 01/28/19 13:24 37.3 C 01/28/19 11:20 38.3 C H 85 22 114/74 100 01/28/19 07:09 37.0 C 77 19 130/74 100 01/28/19 04:00 36.8 C 81 17 112/75 97 Laboratory Results Short CBC 01/28/19 Range/Units 05:44 WBC 6.97 (4.8-10.8) K/uL Hgb 11.8 L (14.0-18.0) g/dL Hct 34.8 L (42-52) % Plt Count 222 (130-400) K/uL BMP 01/28/19 05:44 Sodium 140 Potassium 3.2 L D Chloride 108 H Carbon Dioxide 27 BUN 9 Creatinine 1.17 Glucose 96 Calcium 7.7 L Diagnostic Findings Microbiology 01/27/19 08:31 Blood Aerobic Blood Culture - Preliminary No growth in Aerobic bottle after 24 hours. 01/27/19 08:31 Blood Anaerobic Blood Culture - Preliminary No growth in Anaerobic bottle after 24 hours. 01/27/19 08:26 Blood Aerobic Blood Culture - Preliminary No growth in Aerobic bottle after 24 hours. 01/27/19 08:26 Blood Anaerobic Blood Culture - Preliminary No growth in Anaerobic bottle after 24 hours. 01/27/19 11:00 Urine,Indwelling Cath Urine Culture - Preliminary No growth - Less than 1,000 colonies/mL, Final report to follow. 01/25/19 10:47 Blood Aerobic Blood Culture - Preliminary No growth in Aerobic bottle after 48 hours. 01/25/19 10:47 Blood Anaerobic Blood Culture - Preliminary No growth in Anaerobic bottle after 48 hours. 01/25/19 10:40 Blood Aerobic Blood Culture - Preliminary No growth in Aerobic bottle after 48 hours. 01/25/19 10:40 Blood Anaerobic Blood Culture - Preliminary No growth in Anaerobic bottle after 48 hours. 01/25/19 14:00 Urine,Straight Cath Urine Culture - Final No growth - less than 1,000 colonies/mL. CT DOSE: 863.14 mGy.cm HISTORY: history of prostatic abscess recurrent fever TECHNIQUE: Multiaxial CT images of the abdomen and pelvis were performed following the use of intravenous contrast. A dose lowering technique was utilized adhering to the principles of ALARA. COMPARISON STUDY: Abdomen and pelvis CT 01/25/2019. FINDINGS: Motion artifact. The lung bases are essentially clear. No pneumoperitoneum. No pneumatosis. No suspicious lytic or blastic osseous lesions. The main portal vein is patent. No retroperitoneal lymphadenopathy. Normal caliber abdominal aorta. The upper abdominal structures are partially obscured by motion artifact. However, the liver, gallbladder, spleen, adrenal glands, and pancreas appear within normal limits. No hydronephrosis. The kidneys appear to enhance normally. Trace right perinephric fluid has slightly progressed. No bowel wall thickening or obstruction. Normal appendix. Bladder wall thickening and adjacent inflammatory changes noted. There is a Gibson catheter within the bladder and a small amount of gas. The bladder is decompressed. The focal hypodense area within the prostate gland has resolved in the interval. No loculated fluid collections to suggest an abscess. IMPRESSION: 1. Interval resolution of the focal hypodense area within the prostate gland. No loculated fluid collections to suggest an abscess at this time. 2. Bladder wall thickening and adjacent inflammatory change is noted. This could be due to the recent instrumentation or a possible cystitis. Correlation with urinalysis recommended. 3. The kidneys appear to enhance normally. There is trace right perinephric edema which has slightly progressed. A developing right-sided pyelonephritis is considered less likely but cannot be excluded. 4. No hydronephrosis. 5. No bowel wall thickening or obstruction. Electronically signed by: Oj Rodriguez M.D. 01/27/2019 12:49 PM Dictated: 01/27/19 1242 Transcribed: 01/27/19 1242
[2019-01-28] MEDS: ERTAPENEM SODIUM 1,000 MG in SODIUM CHLORIDE 0.9% 50 ML IV SCH (17:26)
[2019-01-29] MEDS: VANCOMYCIN HCL 1,500 MG in SODIUM CHLORIDE 0.9% 500 ML IV SCH (02:32)
[2019-01-29] MEDS: ACETAMINOPHEN 325 MG TAB PO PRN (07:27)
--- NOTE | 2019-01-29 07:54 | Anesthesiology Progress Note ---
Date of Service January 29, 2019 Anesthesia Post Procedure Vital Signs Vital Signs: Temp Pulse Pulse Pulse Resp BP Pulse Ox 01/29/19 07:17 38.8 C H 104 H 20 129/87 95 01/28/19 23:32 37.7 C H 01/28/19 22:55 116 H 22 116/74 93 01/28/19 22:27 39.2 C H 01/28/19 15:33 36.8 C 79 20 120/74 100 01/28/19 13:24 37.3 C 01/28/19 11:20 38.3 C H 85 22 114/74 100 01/28/19 08:00 78 Pain Intensity Abdomen: Pain Intensity: 4 Notes Mental Status: alert / awake / arousable and participated in evaluation Patient Amnestic to Procedure: Yes Nausea / Vomiting: adequately controlled Pain: adequately controlled Airway Patency, RR, SpO2: stable & adequate BP & HR: stable & adequate Hydration State: stable & adequate Anesthetic Complications: no major complications apparent and Pt Satisfied with anesthetic care
[2019-01-29] MEDS: ASPIRIN 81 MG ECTAB PO SCH (07:57)
[2019-01-29 08:25] LABS: Creatinine Clr Calc Pharmacy 69.9 ml/min; Est GFR (African American) 74.6; Est GFR (Non-African American) 64.3
--- NOTE | 2019-01-29 13:12 | Hospitalist Progress Note ---
Date of Service January 29, 2019 Assessment & Plan (1) Prostate abscess: Occurred in setting of recent prostate bx. S/p transurethral resection of prostate (TURP) and abscess removal by Dr. Ziegler on 01/27. - Cultures thus far negative. - Was on vanc/gent/Zosyn - Tapered on 01/26, but restarted on vanc/gent on 01/27 for temp of 39.2. (Repeat CT a/p on 01/27 did not show further infectious source.) - All stopped in favor of ertapenem on 01/[address] Garcia. - Possibly d/c Gibson per urology. - As of 01/29, still having fevers up to 39. Recultured blood on 01/29 AM. Will wait another 24 hours. If he has continued fevers, will get another CT pelvis. (2) Sepsis: 2nd to prostate abscess. - Resolved as of 01/27 (3) Chest pain: Trops negative on 01/26 in setting of pain last 12+ hours. EKG unremarkable. Had prominent GI symptoms yesterday - likely GERD. - H2 quinn. - No recurrent symptoms (4) Acute kidney injury: Cr. up to 1.5 on admission; down to 1.0 by 01/26. Resolved. - Monitored Cr while on vanc (5) BPH (benign prostatic hyperplasia): Gibson in place at present. - Defer to urology on removal and voiding trial (6) History of CVA (cerebrovascular accident): Temporarily held ASA; as of 01/26 back on it. (7) Hyperlipidemia: On statin; can resume at d/c. (8) GERD (gastroesophageal reflux disease): H2 quinn - see chest pain above (9) DVT prophylaxis: Due to hematuria SCDs only for now. Subjective Had a fever this morning, but otherwise feels well. No abdominal pain. Review of Systems Review of Systems: All systems reviewed & are unremarkable except as noted in HPI & below Physical Exam Constitutional: WD/WN, vitals as above well developed and well nourished Eyes: normal visual burden by confrontation and + anicteric sclerae ENMT: external ear and nose normal, oropharynx normal Neck: normal visual inspection and trachea midline Respiratory: normal respiratory effort, lungs clear to auscultation Cardiovascular: Rate/Rhythm: regular rate and regular rhythm Heart Sounds: normal S1 and normal S2; no murmur Vessels: posterior tibial pulses present and dorsalis pedis pulses present; no JVD Extremities: no edema Gastrointestinal (Abdomen): Inspection/Auscultation: normal bowel sounds Percussion/Palpation: abdomen soft; abdomen nontender, no guarding and no hepatosplenomegaly Musculoskeletal: Head/Neck/Chest: normocephalic and head atraumatic Skin: no rashes, warm and dry Neurologic: awake; not confused Speech / Cognition: normal speech Psychiatric: A+Ox3, euthymic affect Results & Data Vital Signs (Past 12 Hours) Vital Signs Temp Pulse Resp BP Pulse Ox 01/29/19 09:37 37.5 C 01/29/19 07:17 38.8 C H 104 H 20 129/87 95 (1) Sepsis Sepsis type: sepsis due to unspecified organism Qualified Code(s): A41.9 - Sepsis, unspecified organism (2) Chest pain Chest pain type: other chest pain Qualified Code(s): R07.89 - Other chest pain; R07.8 - Other chest pain (3) BPH (benign prostatic hyperplasia) Lower urinary tract symptom presence: symptoms present Lower urinary tract symptom detail: unspecified Qualified Code(s): N40.1 - Benign prostatic hyp erplasia with lower urinary tract symptoms (4) Hyperlipidemia Hyperlipidemia type: mixed hyperlipidemia Qualified Code(s): E78.2 - Mixed hyperlipidemia (5) GERD (gastroesophageal reflux disease) Esophagitis presence: esophagitis presence not specified Qualified Code(s): K21.9 - Gastro-esophageal reflux disease without esophagitis
--- NOTE | 2019-01-29 13:42 | Urology Progress Note ---
Date of Service January 29, 2019 Assessment & Plan (1) Prostate abscess: 73yo M s/p transurethral resection of prostate abscess/ prostatitis on 01/25 secondary to prostate biopsy on 01/22, with prolonged febrile illness. Very fatigued today, discussed plan of care with Dr. Mercedes Bello. Recommend ID lead for continued fevers s/p TURP. Continue andrew catheter for now. No new recommendations per service. Will continue to monitor while inpatient. Subjective 73yo M s/p transurethral resection of prostate abscess/ prostatitis on 01/25 secondary to prostate biopsy on 01/22, with prolonged febrile illness. Still fighting fevers this AM, Tmax 39.2C at 2230 last evening. Pt was sleeping, slow to arouse but then appropriate after some stimulation today. He is unsure of location or why he is hospitalized - states he had a stroke in the past and this is his baseline. Tolerating catheter okay, denies pain in penis, no pelvic or suprapubic discomfort. Draining hazy yellow with mild, scattered hematuria. Review of Systems Review of Systems: All systems reviewed & are unremarkable except as noted in HPI & below Physical Exam Physical Exam: A&OX3 RRR Abd soft, nontender andrew draining hazy yellow with mild, intermittent, light hematuria in tubing. Results & Data Vital Signs (Past 12 Hours) Vital Signs Temp Pulse Resp BP Pulse Ox 01/29/19 09:37 37.5 C 01/29/19 07:17 38.8 C H 104 H 20 129/87 95 Laboratory Results Laboratory Results - last 48 hr 01/27/19 01/28/19 01/28/19 20:59 05:44 05:44 WBC 6.97 RBC 3.60 L Hgb 11.8 L Hct 34.8 L MCV 96.7 MCH 32.8 MCHC 33.9 RDW Std Deviation 47.9 H RDW Coeff of Babak 13.5 Plt Count 222 MPV 8.9 Immature Gran % (Auto) 0.7 Neut % (Auto) 64.8 Lymph % (Auto) 22.2 Powell % (Auto) 10.6 Eos % (Auto) 1.4 Baso % (Auto) 0.3 Immature Gran # (Auto) 0.05 H Neut # (Auto) 4.51 Lymph # (Auto) 1.55 Powell # (Auto) 0.74 H Eos # (Auto) 0.10 Baso # (Auto) 0.02 Sodium 140 Potassium 3.2 L D Chloride 108 H Carbon Dioxide 27 Anion Gap 5.0 BUN 9 Creatinine 1.17 Est Cr Clr Drug Dosing 68.5 Est GFR ( Amer) 72.3 Est GFR (Non-Af Amer) 62.4 BUN/Creatinine Ratio 7.9 L Glucose 96 Calcium 7.7 L Random Gentamicin 4.10 01/29/19 07:16 WBC RBC Hgb Hct MCV MCH MCHC RDW Std Deviation RDW Coeff of Babak Plt Count MPV Immature Gran % (Auto) Neut % (Auto) Lymph % (Auto) Powell % (Auto) Eos % (Auto) Baso % (Auto) Immature Gran # (Auto) Neut # (Auto) Lymph # (Auto) Powell # (Auto) Eos # (Auto) Baso # (Auto) Sodium Potassium Chloride Carbon Dioxide Anion Gap BUN Creatinine 1.14 Est Cr Clr Drug Dosing 69.9 Est GFR ( Amer) 74.6 Est GFR (Non-Af Amer) 64.3 BUN/Creatinine Ratio Glucose Calcium Random Gentamicin
[2019-01-29] MEDS: ERTAPENEM SODIUM 1,000 MG in SODIUM CHLORIDE 0.9% 50 ML IV SCH (16:05)
--- NOTE | 2019-01-29 17:39 | Infectious Disease Progress Nt ---
Date of Service January 29, 2019 Assessment & Plan (1) Prostate abscess: Patient with prostatitis and developing prostate abscess following biopsy, worry about ESBL producing gram-negative given lack of response to ciprofloxacin. Was febrile this morning, but has been afebrile since. Will give another 24 hours or so for assessment of response to ertapenem. Would consider repeating CT scan of the pelvis to ensure no significant abscess development. Will follow. Subjective Patient seen in follow-up for prostatitis and persistent fever. Was febrile earlier, now afebrile since. Appears to be tolerating ertapenem without apparent difficulty. No new complaints. Review of Systems Review of Systems: All systems reviewed & are unremarkable except as noted in HPI & below Physical Exam Constitutional: WD/WN, vitals as above comfortable; no acute distress Eyes: PERRL, conjunctivae normal, anicteric sclerae ENMT: external ear and nose normal, oropharynx normal Neck: trachea midline, no thyromegaly neck nontender Respiratory: normal respiratory effort, lungs clear to auscultation normal percussion; does not use accessory muscles Cardiovascular: Rate/Rhythm: regular rate and regular rhythm Heart Sounds: normal S1 and normal S2; no gallop, no murmur and no cardiac rub Vessels: normal peripheral pulses; no JVD Gastrointestinal (Abdomen): normal bowel sounds, soft, nontender, no hepatosplenomegaly Musculoskeletal: no cyanosis or clubbing, extremities motor strength 5/5 Spine: thoracic spine normal to inspection and lumbar spine normal to inspection; no cervical spinal tenderness Skin: no rashes, warm and dry normal turgor; no lesions Neurologic: patellar DTR's 2+ bilat, sensation intact no focal motor deficits Psychiatric: A+Ox3, euthymic affect Orientation: cooperative Lymphatic: no cervical or axillary lymphadenopathy no inguinal lymphadenopathy Results & Data Vital Signs (Past 12 Hours) Vital Signs Temp Pulse Resp BP Pulse Ox 01/29/19 15:24 36.8 C 84 16 107/70 93 01/29/19 09:37 37.5 C 01/29/19 07:17 38.8 C H 104 H 20 129/87 95 Laboratory Results [facility] 01/29/19 07:16 Creatinine 1.14 Diagnostic Findings Microbiology 01/27/19 11:00 Urine,Indwelling Cath Urine Culture - Final No growth - less than 1,000 colonies/mL. 01/27/19 08:31 Blood Aerobic Blood Culture - Preliminary No growth in Aerobic bottle after 48 hours. 01/27/19 08:31 Blood Anaerobic Blood Culture - Preliminary No growth in Anaerobic bottle after 48 hours. 01/27/19 08:26 Blood Aerobic Blood Culture - Preliminary No growth in Aerobic bottle after 48 hours. 01/27/19 08:26 Blood Anaerobic Blood Culture - Preliminary No growth in Anaerobic bottle after 48 hours. 01/25/19 10:47 Blood Aerobic Blood Culture - Preliminary No growth in Aerobic bottle after 48 hours. 01/25/19 10:47 Blood Anaerobic Blood Culture - Preliminary No growth in Anaerobic bottle after 48 hours. 01/25/19 10:40 Blood Aerobic Blood Culture - Preliminary No growth in Aerobic bottle after 48 hours. 01/25/19 10:40 Blood Anaerobic Blood Culture - Preliminary No growth in Anaerobic bottle after 48 hours. 01/25/19 14:00 Urine,Straight Cath Urine Culture - Final No growth - less than 1,000 colonies/mL.
[2019-01-30 07:42] LABS: BUN Creatinine Ratio 11.6 (10-20); Calcium 8.3 mg/dl (8.5-10.1); Creatinine Clr Calc Pharmacy 91.6 ml/min; Est GFR (African American) 100.6; Est GFR (Non-African American) 86.8; Potassium 3.8 mmol/L (3.5-5.1)
[2019-01-30] MEDS: ASPIRIN 81 MG ECTAB PO SCH (08:11)
--- NOTE | 2019-01-30 08:20 | Urology Progress Note ---
Date of Service January 30, 2019 Assessment & Plan (1) Prostate abscess: 73yo M s/p transurethral resection of prostate abscess/ prostatitis on 01/25 secondary to prostate biopsy on 01/22, with prolonged febrile illness. No new issues overnight, remains stable from perspective. Okay to d/c andrew today, nursing made aware. Call us if unable to void spontaneously in 8 hours. We will arrange for outpatient followup in 2-3 weeks. Thank you for allowing us to participate in the acute care of Mr. Lara. Subjective 73yo M s/p transurethral resection of prostate abscess/ prostatitis on 01/25 secondary to prostate biopsy on 01/22, with prolonged febrile illness. Slept well last night, no new complaints today. Much more alert upon verbal stimulation today, states he subjectively feels better. Tolerating catheter well, denies pain in penis, no pelvic or suprapubic discomfort. Draining hazy yellow, no hematuria today. afebrile x24 hours. Review of Systems Review of Systems: All systems reviewed & are unremarkable except as noted in HPI & below Physical Exam Physical Exam: A&Ox2 RRR abd soft, nontender no suprapubic pain upon palpation gu: andrew draining hazy yellow Results & Data Vital Signs (Past 12 Hours) Vital Signs Temp Pulse Resp BP BP Pulse Ox 01/30/19 07:36 37.1 C 71 18 116/70 96 01/29/19 23:44 37 C 83 18 106/72 97 Laboratory Results Laboratory Results - last 48 hr 01/29/19 01/30/19 07:16 06:45 Sodium 136 Potassium 3.8 Chloride 105 Carbon Dioxide 27 Anion Gap 4.0 BUN 10 Creatinine 1.14 0.87 Est Cr Clr Drug Dosing 69.9 91.6 Est GFR ( Amer) 74.6 100.6 Est GFR (Non-Af Amer) 64.3 86.8 BUN/Creatinine Ratio 11.6 Glucose 93 Calcium 8.3 L
[2019-01-30] MEDS ORDERED: Nursing to Pharmacy Communication ONE (10:33)
[2019-01-30] MEDS: ERTAPENEM SODIUM 1,000 MG in SODIUM CHLORIDE 0.9% 50 ML IV SCH (14:47)
--- NOTE | 2019-01-30 15:12 | Discharge Summary ---
Date of Service January 30, 2019 Admission HPI Per Admitting Provider 73 y/o M c/o fever. Pt underwent a prostate bx with Dr. Ziegler 2 days ago. Since that time, he has felt generally unwell and was noted to have a fever. He was given an antibiotic at some point, although I cannot tell what that was and pt is not certain. Today, pt had an episode of urinary incontinence that was noted to be bloody. This had not happened to him prior. He has not had a bowel movement since his bx. He notes no pain in the region of the bx. Pt denies SOB, chest pain, abd pain, n/v/c/d, LE pain or swelling. Principal Diagnosis Pancreatic abscess Discharge Exam Constitutional WD/WN, vitals as above well developed and well nourished Eyes normal visual burden by confrontation and + anicteric sclerae ENMT external ear and nose normal, oropharynx normal Neck normal visual inspection and trachea midline Respiratory normal respiratory effort, lungs clear to auscultation Cardiovascular Rate/Rhythm: regular rate and regular rhythm Heart Sounds: normal S1 and normal S2; no murmur Vessels: posterior tibial pulses present and dorsalis pedis pulses present; no JVD Extremities: no edema Gastrointestinal (Abdomen) Inspection/Auscultation: normal bowel sounds Percussion/Palpation: abdomen soft; abdomen nontender, no guarding and no hepatosplenomegaly Musculoskeletal Head/Neck/Chest: normocephalic and head atraumatic Skin no rashes, warm and dry Neurologic awake; not confused Speech / Cognition: normal speech Psychiatric A+Ox3, euthymic affect Discharge Data Allergies Allergy/AdvReac Type Severity Reaction Status Date / Time No Known Allergies Allergy Unverified 01/25/19 13:21 Consultations 01/25/19 12:19 Consult Urology Stat 01/25/19 12:34 ED Decision to Admit Stat 01/28/19 10:49 Consult Infectious Diseases Routine Procedures Performed Operation Date: 01/25/19 12:50 Actual Procedures p Transurethral Resection Prostate of Abscess(Not Applicable) - Angelo Ziegler MD Ordered Studies 01/25/19 11:36 CT abd pelvis IV con only Stat 01/27/19 11:56 CT abd pelvis IV con only Stat Hospital Course (1) Prostate abscess: Occurred in setting of recent prostate bx. S/p transurethral resection of prostate (TURP) and abscess removal by Dr. Ziegler on 01/27. - All cultures thus far negative. - Was on vanc/gent/Zosyn - Tapered on 01/26, but restarted on vanc/gent on 01/27 for temp of 39.2. (Repeat CT a/p on 01/27 did not show further infectious source.) - All stopped in favor of ertapenem on 01/[address] Garcia. - As of 01/30, he had not had any fever in > 24 hours. All cultures were negative, though he was on antibiotics for all these cultures as he was discharged on Cipro after his original prostate biopsy. - Discussed with Dr. Garcia who felt he could be discharged. Will monitor at [facility] for further fevers. Will need 14 total days of antibiotics after TURP. Twelve more days - Last day 02/11/2019. (2) Sepsis: 2nd to prostate abscess. - Resolved as of 01/27 (3) Chest pain: Trops negative on 01/26 in setting of pain last 12+ hours. EKG unremarkable. Had prominent GI symptoms yesterday - likely GERD. - H2 quinn. - No recurrent symptoms (4) Acute kidney injury: Cr. up to 1.5 on admission; down to 1.0 by 01/26. Resolved. - Monitored Cr while on vanc - Now off vancomycin on discharge. (5) BPH (benign prostatic hyperplasia): Gibson in place until 01/30. Before discharge, he had a voiding trial with no residual urine in the bladder. - Follow up with urology in 2 weeks. (6) History of CVA (cerebrovascular accident): Temporarily held ASA; as of 01/26 back on it. (7) Hyperlipidemia: On statin; no change. (8) GERD (gastroesophageal reflux disease): H2 quinn - see chest pain above (9) DVT prophylaxis: Due to hematuria SCDs only for now. Total Time Total Time Spent Total Time Spent (In Minutes): 35 Total Time Includes: Examination of the Patient and Communication With Other Providers Discharge Plan Discharge Items [facility] Disposition: [facility] Reason For Visit: FEVER Discharge Diagnosis: Prostate infection with possible abscess Discharge Goals: Decrease discomfort and Diagnostic testing Activity: Resume your previous activity Non-emergency contact: Primary Care Provider and Urologist Call non-emergency contact if: your symptoms worsen, your pain is not controlled and your temperature is above 100.5 Follow-up/Referrals: Angelo Zeigler MD [Physician] - (Please see Dr. Ziegler in 2 weeks in the office.) Maryan HAGER [Primary Care Provider] - Diet: Heart Healthy Addtl Provider Instructions: Mr. Lara was admitted for a prostate infection and small prostate abscess after a prostate biospy several weeks ago. He underwent a prostate resection on 01/27/2019 without complication. He had several fevers after the procedure, so we were worried about antibiotic resistant bacteria. He was seen by Infectious Disease and recommended 14 days of ertapenem 1g IV daily. He needs 12 more days after today (Last day of antibiotics will be 02/11/2019. He will need to be seen by Dr. Ziegler (urology) in 2 weeks to check on the prostate. He has not had any fevers in >24 hours on discharge and all his cultures have been negative so far. Dr. Ziegler's office should be notified if he starts to have fevers again, if he has worsening abdominal pain, hematuria, or other concerning symptoms. Prescriptions: New ranitidine HCl 150 mg capsule 150 mg PO BID PRN (Reason: heartburn) Qty: 1 RF: 0 Continued aspirin [Aspir-81] 81 mg Tablet,Delayed Release (Dr/Ec) 81 mg PO DAILY RF: 0 atorvastatin 40 mg Tablet 40 mg PO PM RF: 0 Stand-Alone Forms: [facility] Discharge Orders: Discharge Order (Routine); Ordered 01/30/19 Ordered By: Lino Bello Admission Data Admit Date/Time: 01/25/19 13:13 Attending Provider: Lino Bello Admit Provider: Sarahy Sesay Primary Care Provider: Maryan HAGER Other Providers: Angelo Ziegler ; Sarahy Sesay ; Arnol Garcia Service: Medical Other Interventions: Discharge Summary Assessment (RN) Last Done: 01/30/19 14:25
--- NOTE | 2019-01-30 15:32 | Infectious Disease Progress Nt ---
Date of Service January 30, 2019 Assessment & Plan (1) Prostate abscess: Patient with prostatitis and developing prostate abscess following biopsy, worry about ESBL producing gram-negative given lack of response to ciprofloxacin. Appears to be showing clinical response to ertapenem. Would continue for 10 days total. Subjective Patient seen in follow-up for prostatitis, developing prostatic abscess, persistent fever. Has been afebrile for more than 24 hours since changed to ertapenem. Feeling better. No new complaints. Review of Systems Review of Systems: All systems reviewed & are unremarkable except as noted in HPI & below Physical Exam Constitutional: WD/WN, vitals as above comfortable; no acute distress Eyes: PERRL, conjunctivae normal, anicteric sclerae ENMT: external ear and nose normal, oropharynx normal Neck: trachea midline, no thyromegaly neck nontender Respiratory: normal respiratory effort, lungs clear to auscultation normal percussion; does not use accessory muscles Cardiovascular: Rate/Rhythm: regular rate and regular rhythm Heart Sounds: normal S1 and normal S2; no gallop, no murmur and no cardiac rub Vessels: normal peripheral pulses; no JVD Gastrointestinal (Abdomen): normal bowel sounds, soft, nontender, no hepatosplenomegaly Musculoskeletal: no cyanosis or clubbing, extremities motor strength 5/5 Spine: thoracic spine normal to inspection and lumbar spine normal to inspection; no cervical spinal tenderness Skin: no rashes, warm and dry normal turgor; no lesions Neurologic: patellar DTR's 2+ bilat, sensation intact no focal motor deficits Psychiatric: A+Ox3, euthymic affect Orientation: cooperative Lymphatic: no cervical or axillary lymphadenopathy no inguinal lymphadenopathy Results & Data Vital Signs (Past 12 Hours) Vital Signs Temp Pulse Pulse Resp BP BP Pulse Ox 01/30/19 14:25 37.1 C 71 84 18 106/72 116/70 96 01/30/19 07:36 37.1 C 71 18 116/70 96 Diagnostic Findings BMP 01/30/19 06:45 Sodium 136 Potassium 3.8 Chloride 105 Carbon Dioxide 27 BUN 10 Creatinine 0.87 Glucose 93 Calcium 8.3 L Medications Administered Microbiology 01/25/19 10:47 Blood Aerobic Blood Culture - Final No growth in Aerobic bottle after 5 days. 01/25/19 10:47 Blood Anaerobic Blood Culture - Final No growth in Anaerobic bottle after 5 days. 01/25/19 10:40 Blood Aerobic Blood Culture - Final No growth in Aerobic bottle after 5 days. 01/25/19 10:40 Blood Anaerobic Blood Culture - Final No growth in Anaerobic bottle after 5 days. 01/29/19 09:46 Blood Aerobic Blood Culture - Preliminary No growth in Aerobic bottle after 24 hours. 01/29/19 09:46 Blood Anaerobic Blood Culture - Preliminary No growth in Anaerobic bottle after 24 hours. 01/29/19 09:54 Blood Aerobic Blood Culture - Preliminary No growth in Aerobic bottle after 24 hours. 01/29/19 09:54 Blood Anaerobic Blood Culture - Preliminary No growth in Anaerobic bottle after 24 hours. 01/27/19 11:00 Urine,Indwelling Cath Urine Culture - Final No growth - less than 1,000 colonies/mL. 01/27/19 08:31 Blood Aerobic Blood Culture - Preliminary No growth in Aerobic bottle after 48 hours. 01/27/19 08:31 Blood Anaerobic Blood Culture - Preliminary No growth in Anaerobic bottle after 48 hours. 01/27/19 08:26 Blood Aerobic Blood Culture - Preliminary No growth in Aerobic bottle after 48 hours. 01/27/19 08:26 Blood Anaerobic Blood Culture - Preliminary No growth in Anaerobic bottle after 48 hours. 01/25/19 14:00 Urine,Straight Cath Urine Culture - Final No growth - less than 1,000 colonies/mL.
== END 2019-01-30 16:47 | DRG 856 ==
LOC: ED 10:14 → OR 13:05 → 2S 13:13 → SUATTDRO 13:13 → 2W 01-28 15:42 → 4W 01-29 22:26
DX: R31.9 Hematuria, unspecified; Z86.73 Personal history of transient ischemic attack (TIA), and cerebral infarction without residual deficits; Z79.82 Long term (current) use of aspirin; Z79.899 Other long term (current) drug therapy; A41.9 Sepsis, unspecified organism; K21.9 Gastro-esophageal reflux disease without esophagitis; N17.9 Acute kidney failure, unspecified; E78.5 Hyperlipidemia, unspecified; T81.43XA Infection following a procedure, organ and space surgical site, initial encounter; Y84.8 Other medical procedures as the cause of abnormal reaction of the patient, or of later complication, without mention of misadventure at the time of the procedure; N40.0 Benign prostatic hyperplasia without lower urinary tract symptoms; Z87.891 Personal history of nicotine dependence; N41.2 Abscess of prostate; N41.0 Acute prostatitis

== ENCOUNTER 2024-09-14 22:47 | Observation (INO) ==
--- NOTE | 2024-09-14 23:20 | Emergency Department Note ---
Impression & Plan Sepsis, Influenza A, Altered mental status, Elevated troponin ED Provider Note NAME: IMAN [id number] TONI AGE: 78 SEX: M : 1945 ARRIVES VIA: Ambulance INFORMANT: Patient, EMS ED PROVIDER(S): Miguel Wallace DO CHIEF COMPLAINT: Confusion and weakness HPI: Patient is a 78-year-old male with a past medical history of sepsis, BPH, CVA, JOEL, GERD who presents to the ER for weakness and confusion. Symptoms started within the past 24 hours. He admits that he has had a cough and congestion as well as a runny nose for the past 3 days. Has been getting worse. He has no shortness of breath. Denies any belly pain. No dysuria, urgency or frequency. No nausea or vomiting. No open wounds or sores. No other exacerbating or remitting factors. Guards provide additional history and notes that normally he is awake alert oriented and able to take care of himself on the unit. ADDITIONAL HISTORY OBTAINED: Per HPI Chronic Medical/Social Conditions Affecting Care: Per HPI PAST MEDICAL HISTORY:See Below PAST SURGICAL HISTORY:See Below FAMILY HISTORY:See Below SOCIAL HISTORY:See Below HOME MEDICATIONS:See Below ALLERGIES:See Below VITALS:See Below PHYSICAL EXAMINATION: GENERAL: Sitting up in bed, alert, generally ill-appearing, obese with a cough EYE EXAM: normal conjunctiva. OROPHARYNX: no exudate, no erythema, lips, buccal mucosa, and tongue normal and mucous membranes are moist NECK: supple, no nuchal rigidity, no adenopathy, non-tender LUNGS: Clear to auscultation. Normal chest wall mechanics HEART: no murmurs, S1 normal and S2 normal ABDOMEN: abdomen soft, non-tender, normo-active bowel sounds, no masses, no rebound or guarding. UPPER EXTREMITIES: upper extremities are grossly normal. LOWER EXTREMITIES: No pitting edema. NEURO EXAM: Oriented to person but not year or month, cranial nerves II-XII grossly intact, normal speech, no gross weakness of arms, no gross weakness of legs. MEDICAL DECISION MAKING: Patient is a 78-year-old male who presents ER for the above-stated complaint. IV was established and blood work was obtained. Patient was given 2 L when she is about 260 mL short of 30 cc/kg for ideal body weight. He was not given the complete amount of fluids due to concern for overload. Labs show no significant leukocytosis or anemia. BMP with mild hypokalemia 3.4. Lactate was normal at 1.1. Mild transaminitis of 100. Troponin slightly elevated at 20. Pro-Dmitri negative. UA was clean. Viral panel was positive for flu. Chest x-ray with no focal infiltrate. Patient was given IV fluids and IV cefepime upon initial arrival. With the confusion Case was discussed with the hospitalist for further evaluation management and treatment. Do favor the elevation in troponin is likely secondary due to demand ischemia. Consults/Care Managements Discussions: Per MDM Triage Nursing notes reviewed. Limited review of prior medical records performed Vital Signs: reviewed and remarkable for hypertensive, tachycardic, tachypneic and febrile Differential diagnosis: Infection, dehydration, metabolic abnormality, hypo/hyperglycemia, electrolyte disturbance, anemia, hypoxia, cardiac sources, intracerebral event, toxicologic, neurologic, as well as other pathologies. ER treatment provided: See below Diagnostics interpreted by me include EKG and cardiac monitoring as listed below: -Cardiac Monitoring: An order was placed for continuous cardiac monitoring. The monitor shows a rate of 110 with sinus rhythm. -ECG: Sinus tachycardia rate of 115 Normal axis No PVCs QTc 448 -Laboratory studies:Interpreted by me as stated above in MDM and shown below. Imaging studies: Xrays: As interpreted by me: Portable AP upright 1 view of the chest shows no focal infiltrate CTs show: none Procedures:none Critical Care: None Past Med/Surg History Problem List (Updated 09/15/24 @ 01:15 by Yennifer Hahn PA-C) Hyponatremia Transaminitis Hypokalemia Weakness Elevated troponin (Acute) Altered mental status (Acute) Influenza A (Acute) Encounter for pre-operative examination Obesity Fever (Acute) increase coverage of antibiotics consider ID consult will feed patient for now Prostate abscess (Acute) Hyperlipidemia (Chronic) BPH (benign prostatic hyperplasia) (Chronic) History of CVA (cerebrovascular accident) Sepsis (Acute) Chest pain (Acute) Acute kidney injury (Acute) GERD (gastroesophageal reflux disease) Prostate cancer (Chronic) Gross hematuria Urethral stricture Medical History Obesity Chronic pain Emphysema lung Inmate in correctional 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 Father , Passed in 80's of unknown No problems noted. Brother , Passed in 50's of accident at work No problems noted. Brother No problems noted. Brother No problems noted. Brother No problems noted. Brother No problems noted. Daughter No problems noted. Daughter No problems noted. Son No problems noted. Son No problems noted. Denies family history of Myocardial infarction Stroke Social History Smoking Status: Former smoker Age Started Using Tobacco: 12; Age Quit Using Tobacco: 62; packs per day: 1.5; Hx Alcohol Use: No Hx Substance Use: No Preferred Language: Tajik Visual Impairment: Limited Hearing Ability: Hard of Hearing Commercial Energy Auditor Required: No Beliefs That Will Affect Care: None Current Living Situation: Other Current Living Situation Comment: [facility] Feels Safe at Home: Yes Childhood Exposure to Second-Hand Smoke: Yes caffeine: Yes (1 cup of coffee ) during the past year weight has: remained stable Dental Care, Regularly: No Assistive Devices: None Allergies Allergies Allergy/AdvReac Type Severity Reaction Status Date / Time No Known Allergies Allergy Verified 09/15/24 00:40 Home Meds Home Medications Medication Instructions Recorded Confirmed albuterol sulfate 90 mcg/actuation 2 puff inhalation QID PRN 09/27/23 09/15/24 aerosol inhaler Shortness Of Breath aspirin 325 mg tablet (Kelly 325 mg PO DAILY 09/27/23 09/15/24 Aspirin) atorvastatin 40 mg tablet 40 mg PO DAILY 09/27/23 09/15/24 calcium polycarbophil 625 mg 625 mg PO BID 09/27/23 09/15/24 tablet (FiberCon) docusate sodium 250 mg capsule 500 mg PO BID 09/27/23 09/15/24 tamsulosin 0.4 mg capsule (Flomax) 0.4 mg PO BID 09/27/23 09/15/24 furosemide 20 mg tablet 20 mg PO DAILY 09/15/24 09/15/24 nortriptyline 25 mg capsule 25 mg PO HS 09/15/24 09/15/24 Results & Data (ED) Vital Signs Vital Signs - 24 hr 09/14/24 22:42 09/14/24 22:58 09/14/24 23:04 Temperature 39.1 C H Temperature Source Oral Pulse Rate 115 H Pulse Rate from SpO2 Sensor Respiratory Rate 26 H Respiratory Effort / Characteristics Non-Labored Spontaneous Respiratory Depth Normal Respiratory Pattern Regular Blood Pressure 159/91 H Blood Pressure Mean 113 Pulse Oximetry 95 93 Oxygen Delivery Method Room Air Room Air Room Air Sepsis Recent Fever Within 48 Hours Yes Sepsis New/Unexplained Change in Mental Status Yes Sepsis Action Taken by Nursing No Action Required 09/14/24 23:06 09/14/24 23:27 09/15/24 00:03 Temperature Temperature Source Pulse Rate 116 H 114 H 107 H Pulse Rate from SpO2 Sensor 115 H Respiratory Rate 25 H 23 Respiratory Effort / Characteristics Respiratory Depth Respiratory Pattern Blood Pressure 122/105 H 171/101 H Blood Pressure Mean 110 124 Pulse Oximetry 94 Oxygen Delivery Method Sepsis Recent Fever Within 48 Hours Sepsis New/Unexplained Change in Mental Status Sepsis Action Taken by Nursing 09/15/24 00:22 Temperature 38.3 C H Temperature Source Oral Pulse Rate Pulse Rate from SpO2 Sensor Respiratory Rate Respiratory Effort / Characteristics Respiratory Depth Respiratory Pattern Blood Pressure Blood Pressure Mean Pulse Oximetry Oxygen Delivery Method Sepsis Recent Fever Within 48 Hours Sepsis New/Unexplained Change in Mental Status Sepsis Action Taken by Nursing Laboratory Data 09/14/24 23:07 09/14/24 23:07 Lab Results 09/14/24 09/14/24 09/14/24 Range/Units 23:07 23:08 23:38 WBC 5.81 (4.8-10.8) K/ul RBC 4.10 L (4.70-6.10) M/uL Hgb 13.6 L (14.0-18.0) g/dl Hct 39.4 L (42.0-52.0) % MCV 96.1 (80.0-100.0) fL MCH 33.2 (25.0-34.0) pg MCHC 34.5 (32.0-36.0) g/dL RDW Std Deviation 44.7 (36.4-46.3) fL RDW Coeff of Babak 12.6 (11.5-14.5) % Plt Count 183 (130-400) K/uL MPV 8.9 L (9.4-12.4) fL Immature Gran % (Auto) 0.5 % Neut % (Auto) 73.0 % Lymph % (Auto) 12.7 % Steele % (Auto) 13.3 % Eos % (Auto) 0.3 % Baso % (Auto) 0.2 % Neut # (Auto) 4.24 (1.40-6.50) K/uL Lymph # (Auto) 0.74 L (1.20-3.40) K/uL Steele # (Auto) 0.77 H (0.11-0.59) K/uL Eos # (Auto) 0.02 (0.00-0.50) K/uL Baso # (Auto) 0.01 (0.00-0.20) K/uL Immature Gran # (Auto) 0.03 (0.01-0.20) K/uL Sodium 132 L (136-145) mmol/L Potassium 3.4 L (3.5-5.1) mmol/L Chloride 99 (98-107) mmol/L Carbon Dioxide 26 (21-32) mmol/L Anion Gap 7 (3-11) BUN 13 (6-23) mg/dl Creatinine 1.43 H (0.6-1.4) mg/dl Est Cr Clr Drug Dosing 57.3 ml/min eGFR 50.78 BUN/Creatinine Ratio 9.1 L (10-20) Glucose 109 H (70-99(Fasting)) mg/dl Lactate 1.1 (0.4-2.0) mmol/L Calcium 8.2 L (8.6-10.3) mg/dl Total Bilirubin 0.6 (0.2-1.0) mg/dl AST 102 H (13-39) U/L ALT 102 H (7-52) U/L Alkaline Phosphatase 77 (34-104) U/L Troponin I High Sens 20.1 H (0-20) pg/ml Total Protein 6.7 (6.0-8.3) gm/dl Albumin 3.7 (3.4-5.0) gm/dl Globulin 3.0 (2.5-4.0) gm/dl Albumin/Globulin Ratio 1.2 (0.9-2) Lipase 32 (11-82) U/L Procalcitonin 0.46 (0-0.5) ng/ml Urine Color Yellow Urine Appearance Clear (Clear) Urine pH 5.5 (4.5-7.5) Ur Specific [place] 1.024 (1.000-1.030) Urine Protein 2+ H (Negative) Urine Glucose (UA) Negative (Negative) Urine Ketones 2+ H (Negative) Urine Blood 3+ H (Negative) Urine Nitrite Negative (Negative) Urine Bilirubin Negative (Negative) Urine Urobilinogen Positive H (Negative) Ur Leukocyte Esterase Negative (Negative) Urine WBC (Auto) 0-5 (0-5) /hpf Urine RBC (Auto) 0-2 (0-2) /hpf U Hyaline Cast (Auto) 3-5 H (0-2) /lpf U Epithel Cells (Auto) 0-2 (0-2) /hpf Urine Bacteria (Auto) None Seen (None Seen) Ur Random Sodium 105 mmol/L Adenovirus (PCR) Not Detected (NotDetected) B. pertussis DNA (PCR) Not Detected (NotDetected) B.parapertussis DNA PCR Not Detected (NotDetected) C. pneumoniae DNA (PCR) Not Detected (NotDetected) Coronavirus OC43 (PCR) Not Detected (NotDetected) Coronavirus HKU1 (PCR) Not Detected (NotDetected) Coronavirus 229E (PCR) Not Detected (NotDetected) SARS-CoV-2 (PCR) Not Detected (NotDetected) Coronavirus NL63 (PCR) Not Detected (NotDetected) Human Metapneumovir PCR Not Detected (NotDetected) Influenza A (H3) PCR DETECTED A (NotDetected) Influenza Type B (PCR) Not Detected (NotDetected) M. pneumoniae (PCR) Not Detected (NotDetected) Parainfluenza 1 (PCR) Not Detected (NotDetected) Parainfluenza 2 (PCR) Not Detected (NotDetected) Parainfluenza 3 (PCR) Not Detected (NotDetected) Parainfluenza 4 (PCR) Not Detected (NotDetected) RSV (PCR) Not Detected (NotDetected) Entero/Rhino (PCR) Not Detected (NotDetected) Administered Medications Sodium Chloride (Nss) 1,000 mls @ 999 mls/hr IV .Q1H1M KATHRIN Stop: 09/15/24 01:30 Last Infusion: 09/15/24 01:20 Dose: Infused Documented By: Admin: 09/15/24 00:19 Dose: 999 mls/hr Documented By: Infusion: 09/15/24 00:19 Dose: Infused Documented By: Admin: 09/14/24 23:23 Dose: 999 mls/hr Documented By: CHANDAN Discontinued Medications Cefepime HCl (Maxipime 2000mg) 2,000 mg in 20 mls @ 5 mls/min IV NOW STA; Protocol Stop: 09/14/24 23:19 Last Admin: 09/15/24 00:04 Dose: 5 mls/min Documented By: CHANDAN Ibuprofen (Ibuprofen 200 Mg Tab) 400 mg PO NOW STA Stop: 09/14/24 23:17 Last Admin: 09/14/24 23:22 Dose: 400 mg Documented By: CHANDAN Discharge Plan Visit Data Chief Complaint: Weakness Stated Complaint: Weakness, Altered ED Provider: Miguel Wallace Discharge Problem: Sepsis, Influenza A, Altered mental status, Elevated troponin Forms Stand Alone Forms: [facility] Prescriptions Prescriptions: No Action atorvastatin 40 mg Tablet 40 mg PO DAILY aspirin [Kelly Aspirin] 325 mg Tablet 325 mg PO DAILY tamsulosin [Flomax] 0.4 mg Capsule 0.4 mg PO BID calcium polycarbophil [FiberCon] 625 mg Tablet 625 mg PO BID albuterol sulfate 90 mcg/actuation Hfa Aerosol Inhaler 2 puff INHALATION QID PRN (Reason: Shortness Of Breath) docusate sodium 250 mg Capsule 500 mg PO BID nortriptyline 25 mg Capsule 25 mg PO HS furosemide 20 mg Tablet 20 mg PO DAILY Referrals Referrals: Maryan HAGER [Primary Care Provider] - Discharge Problem: Sepsis Qualifiers: Sepsis type: sepsis due to unspecified organism Sepsis acute organ dysfunction status: unspecified Qualified Code(s): A41.9 - Sepsis, unspecified organism Altered mental status Qualifiers: Altered mental status type: unspecified Qualified Code(s): R41.82 - Altered mental status, unspecified
[2024-09-14] MEDS: IBUPROFEN 200 MG TAB PO STA (23:22)
[2024-09-14] MEDS: SODIUM CHLORIDE 0.9% 1,000 ML IV SCH (23:23)
[2024-09-14 23:30] LABS: Basophils # (auto) 0.01 K/uL (0.00-0.20); Basophils % (auto) 0.2 %; Eosinophils # (auto) 0.02 K/uL (0.00-0.50); Eosinophils % (auto) 0.3 %; Hematocrit (blood only) 39.4 % (42.0-52.0); Hemoglobin 13.6 g/dl (14.0-18.0); Immature Granulocytes # (auto) 0.03 K/uL (0.01-0.20); Immature Granulocytes % (auto) 0.5 %; Lymphocytes # (auto) 0.74 K/uL (1.20-3.40); Lymphocytes % (auto) 12.7 %; Mean Corpuscular Hemoglobin 33.2 pg (25.0-34.0); Mean Corpuscular Hgb Conc 34.5 g/dL (32.0-36.0); Mean Corpuscular Volume 96.1 fL (80.0-100.0); Mean Platelet Volume 8.9 fL (9.4-12.4); Monocytes # (auto) 0.77 K/uL (0.11-0.59); Monocytes % (auto) 13.3 %; Neutrophils # (auto) 4.24 K/uL (1.40-6.50); Platelet Count 183 K/uL (130-400); RDW Coefficient of Variation 12.6 % (11.5-14.5); RDW Standard Deviation 44.7 fL (36.4-46.3); White Blood Count 5.81 K/ul (4.8-10.8)
[2024-09-14 23:48] LABS: Albumin Globulin Ratio 1.2 (0.9-2); Albumin Level 3.7 gm/dl (3.4-5.0); BUN Creatinine Ratio 9.1 (10-20); Bilirubin,Total 0.6 mg/dl (0.2-1.0); Calcium 8.2 mg/dl (8.6-10.3); Creatinine Clr Calc Pharmacy 57.3 ml/min; Potassium 3.4 mmol/L (3.5-5.1); Total Protein 6.7 gm/dl (6.0-8.3)
[2024-09-14 23:51] LABS: Appearance Urine Clear (Clear); Bacteria Urine Automated None Seen (None Seen); Bilirubin Urine Negative (Negative); Blood Urine 3+ (Negative); Color Urine Yellow; Epithelial Cell Urine Auto 0-2 /hpf (0-2); Glucose Urine UA Negative (Negative); Ketones Urine 2+ (Negative); Leukocyte Esterase Urine Negative (Negative); Nitrite Urine Negative (Negative); Protein Urine 2+ (Negative); RBC Urine Automated 0-2 /hpf (0-2); Specific Gravity Urine 1.024 (1.000-1.030); Urobilinogen Urine Positive (Negative); WBC Urine Automated 0-5 /hpf (0-5); pH Urine 5.5 (4.5-7.5)
[2024-09-14 23:54] LABS: Troponin I High Sensitivity 20.1 pg/ml (0-20)
[2024-09-15] MEDS: CEFEPIME 2000MG 2,000 MG/20 ML SYR IV STA (00:04)
[2024-09-15 00:15] LABS: Adenovirus PCR Not Detected (NotDetected); Bordetella parapertussis PCR Not Detected (NotDetected); Bordetella pertussis PCR Not Detected (NotDetected); Chlamydia pneumoniae PCR Not Detected (NotDetected); Coronavirus 229E PCR Not Detected (NotDetected); Coronavirus CoV-2 (COVID19)PCR Not Detected (NotDetected); Coronavirus HKU1 PCR Not Detected (NotDetected); Coronavirus NL63 PCR Not Detected (NotDetected); Coronavirus OC43PCR Not Detected (NotDetected); Human Metapneumovirus PCR Not Detected (NotDetected); Influenza A (H3) PCR DETECTED (NotDetected); Influenza B PCR Not Detected (NotDetected); Mycoplasma pneumoniae PCR Not Detected (NotDetected); Parainfluenza Virus 1 PCR Not Detected (NotDetected); Parainfluenza Virus 2 PCR Not Detected (NotDetected); Parainfluenza Virus 3 PCR Not Detected (NotDetected); Parainfluenza Virus 4 PCR Not Detected (NotDetected); Respiratory Syncytial VirusPCR Not Detected (NotDetected); Rhinovirus/Enterovirus PCR Not Detected (NotDetected)
--- NOTE | 2024-09-15 00:33 | History & Physical Report ---
Date of Service September 15, 2024 Assessment & Plan (1) Weakness: (2) Influenza A: (3) Elevated troponin: (4) Hyponatremia: (5) Hypokalemia: (6) Hypomagnesemia: (7) Transaminitis: (8) Abdominal distension: Plan Patient is a 78-year-old male with a past medical history of BPH, CVA in 2017, hyperlipidemia, GERD, prostate cancer in 2019, emphysema, chronic constipation. He presents today due to weakness and confusion for the past 24 hours, he has had cough, congestion, fever, chills, and dyspnea on exertion for approximately a week. Patient tested positive for influenza A in ED and is being admitted for monitoring with confusion. #weakness/influenza A Symptoms x 1 week; outside of Tamiflu window Originally thought to be septic given tachycardia (116) and febrile (39.1 C), but WBC WNL and lactate negative (1.1) given cefepime in ED; defer further ABX use follow blood cultures 2L NSS bolus in ED, promote oral hydration CXR negative, procal negative isolation precautions Supportive care with oral hydration, Tylenol, Mucinex, Tessalon Perle #elevated trop 20.1 -> 22.9 EKG showing sinus tachycardia, no ischemic changes denies cp trend overnight #hyponatremia suspect secondary to decreased oral intake NA 132 on admission Expect to improve with IV fluids in ED Trend CMP #hypokalemia/hypomagnesemia suspect secondary to decreased oral intake K+ 3.4 on admission -> 40 Meq ordered Mg 1.6 -> 1G IV ordered trend CMP and Mg #transaminitis no history of liver impairment AST 102/ ALT 102 Trend CMP, can consider US if elevated with AM labs acetaminophen level ordered #abdominal distention KUB ordered does have chronic constipation Renal function mildly worsened, creatinine increased from 1.1-1.43. He does not meet criteria for JOEL at this time. 2+ proteinuria. Suspect secondary to decreased oral intake; Fena = 0.5% = prerenal. Trend CMP during hospitalization, expect to improve with IV fluids in ED. Chronic stable diagnoses: BPH - continue Flomax HTN - continue Lasix, mildly elevated 2/2 to IV fluid bolus depression - continue nortriptyline chronic constipation - continue FiberCon and docusate sodium emphysema - continue albuterol as needed VTE ppx: SCDs - low risk Diet: regular Dispo: med/surg Admission and Anticipated Discharge Date Admission Date: 09/15/24 History of Present Illness Chief Complaint: weakness Primary Care Provider: SCI Maryan Patient is a 78-year-old male with a past medical history of BPH, CVA in 2017, hyperlipidemia, GERD, prostate cancer in 2019, emphysema, chronic constipation. He presents today due to weakness and confusion for the past 24 hours, he has had cough, congestion, fever, chills, and dyspnea on exertion for approximately a week. Patient tested positive for influenza A in ED and is being admitted for monitoring with confusion. Patient seen at bedside with SCI officers present. He stated he has had flulike symptoms for approximately a week. His cough is dry. He only has dyspnea on exertion. He also endorses a headache today. He stated he also has had mild dizziness. He is oriented to self and time, disoriented to place. As per the officers, this is not his baseline. He also stated he has had a decreased p.o. intake for the past few days. He does not use oxygen at baseline and he got his home medications today. He does use nicotine products, e-cigarettes. Patient denies chest pain, abdominal pain, nausea, vomiting, diarrhea. Allergies Allergy/AdvReac Type Severity Reaction Status Date / Time No Known Allergies Allergy Verified 09/15/24 00:40 Home Medications Medication Instructions Recorded Confirmed Type albuterol sulfate 90 mcg/actuation 2 puff inhalation QID PRN 09/27/23 09/15/24 History aerosol inhaler Shortness Of Breath aspirin 325 mg tablet (Kelly 325 mg PO DAILY 09/27/23 09/15/24 History Aspirin) atorvastatin 40 mg tablet 40 mg PO DAILY 09/27/23 09/15/24 History calcium polycarbophil 625 mg 625 mg PO BID 09/27/23 09/15/24 History tablet (FiberCon) docusate sodium 250 mg capsule 500 mg PO BID 09/27/23 09/15/24 History tamsulosin 0.4 mg capsule (Flomax) 0.4 mg PO BID 09/27/23 09/15/24 History furosemide 20 mg tablet 20 mg PO DAILY 09/15/24 09/15/24 History nortriptyline 25 mg capsule 25 mg PO HS 09/15/24 09/15/24 History Past Med/Surg History Problem List (Updated 09/15/24 @ 02:20 by Yennifer Hahn PA-C) Hypomagnesemia Abdominal distension Hyponatremia Transaminitis Hypokalemia Weakness Elevated troponin (Acute) Altered mental status (Acute) Influenza A (Acute) Encounter for pre-operative examination Obesity Fever (Acute) increase coverage of antibiotics consider ID consult will feed patient for now Prostate abscess (Acute) Hyperlipidemia (Chronic) BPH (benign prostatic hyperplasia) (Chronic) History of CVA (cerebrovascular accident) Sepsis (Acute) Chest pain (Acute) Acute kidney injury (Acute) GERD (gastroesophageal reflux disease) Prostate cancer (Chronic) Gross hematuria Urethral stricture Medical History Obesity Chronic pain Emphysema lung Inmate in correctional facility [facility] Osteoarthritis History of latent tuberculosis No active TB per [facility] ([place]) on 08/12/22 Constipation CVA (cerebral vascular accident) 2017 per [facility]- no issues since Neurocognitive 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 Father , Passed in 80's of unknown No problems noted. Brother , Passed in 50's of accident at work No problems noted. Brother No problems noted. Brother No problems noted. Brother No problems noted. Brother No problems noted. Daughter No problems noted. Daughter No problems noted. Son No problems noted. Son No problems noted. Denies family history of Myocardial infarction Stroke Social History Smoking Status: Former smoker Age Started Using Tobacco: 12; Age Quit Using Tobacco: 62; packs per day: 1.5; Hx Alcohol Use: No Hx Substance Use: No Preferred Language: Albanian Visual Impairment: Limited Hearing Ability: Hard of Hearing Miner Assistant Required: No Beliefs That Will Affect Care: None Current Living Situation: Other Current Living Situation Comment: [facility] Feels Safe at Home: Yes Childhood Exposure to Second-Hand Smoke: Yes caffeine: Yes (1 cup of coffee ) during the past year weight has: remained stable Dental Care, Regularly: No Assistive Devices: None Review of Systems Review of Systems: see HPI Physical Exam Physical Exam: The patient is awake, alert and oriented 2 (to self and time only), well developed and well nourished, normocephalic and atraumatic, in no acute distress. Non-toxic appearing. HEENT- EOMI, mucous membranes dry. Hearing grossly intact. Heart-normal S1 and S2. No murmurs, rubs or gallops. Lungs-clear bilaterally, no respiratory distress, no accessory muscle use. Abdomen-normal bowel sounds and soft. Mildly distended. Non-tender. Extremities- no clubbing, cyanosis, or edema. Results & Data Results & Data Vital Signs (Past 12 Hours) Vital Signs Temp Pulse Resp BP Pulse Ox O2 Del Method 09/15/24 00:22 38.3 C H 09/15/24 00:03 107 H 23 171/101 H 09/14/24 23:27 114 H 25 H 122/105 H 94 09/14/24 23:06 116 H 09/14/24 23:04 93 Room Air 09/14/24 22:58 39.1 C H 115 H 26 H 159/91 H 95 Room Air 09/14/24 22:42 Room Air Laboratory Results Reviewed CBC, CMP, Pro-Dmitri, bio fire, UA Diagnostic Findings reviewed CXR Medications Administered ED: cefepime, 2L NSS bolus, advil ECG Additional Comments: sinus tachycardia, rate 115 Code Status & VTE Plan Code Status full VTE Prophylaxis Plan VTE Prophylaxis will be ordered: Yes Supervising Physician Co-Signing Physician Notes Patient seen and examined, chart reviewed, case discussed with ROE Hahn and I agree with the assessment and plan as above. In brief, patient is a 78yo male currently incarcerated at [facility] presenting with one week of fever, chills, cough, congestion, weakness and confusion. Patient has tested POSITIVE for Influenza A On exam he is sleeping, arousable but tired Skin - no rash HEENT- NC/AT, PERRL, Dry MM Heart - +S1/S2, regular Lungs - CTA anteriorly Abd - distended, tympanic, non-tender Ext - no edema Labs and images reviewed - POSITIVE INFLUENZA A Stable anemia Lymphopenia Na low at 132 K low at 3.4 Cr elevated at 1.43 KGK=828, FZV=183 Trop=22.9 Assessment/Plan - Weakness and Confusion in setting of Influenza A infection Symptomatic care with Albuterol, Tessalon, Tylenol and Mucinex Repeat LFTs in AM - If still increased would pursue abdominal imaging and further workup Follow troponin Remainder as above PG Care Time/CCT Total # of Minutes Spent Total Time Spent with Patient: Total time spent is greater than 50% in coordination of care (as documented) at patient's floor/unit and/or counseling patient: Coding Level of Care Code 21150 INT INP/OBS CARE 3/75MIN Diagnoses Weakness R53.1 Influenza A J10.1 Elevated troponin R79.89 Hyponatremia E87.1 Hypokalemia E87.6 Hypomagnesemia E83.42 Transaminitis R74.01 Abdominal distension R14.0
[2024-09-15 01:29] LABS: Creatinine Urine Random 219.8 mg/dl
[2024-09-15] MEDS: POTASSIUM CHLORIDE CRTAB 20 MEQ TABCR PO STA (01:41)
[2024-09-15 02:14] LABS: Magnesium 1.6 mg/dl (1.7-2.4)
--- NOTE | 2024-09-15 02:18 | XRay Report ---
Exam(s): XR CXR 1 VIEW EXAM: XR Chest, 1 View CLINICAL HISTORY: Reason for exam: cough fever. TECHNIQUE: Frontal view of the chest. COMPARISON: 09/27/23 FINDINGS: Lungs: Unremarkable. No consolidation. Pleural space: Unremarkable. No pleural effusion or pneumothorax. Heart: Unremarkable. No cardiomegaly or pulmonary vascular congestion. Bones/joints: No acute fracture. No dislocation. Degenerative change in the spine and shoulders. IMPRESSION: No evidence of acute cardiopulmonary disease. Electronically signed by: Lore Anders M.D. 09/15/24 02:18 AM
[2024-09-15 02:21] LABS: Troponin I High Sensitivity 22.9 pg/ml (0-20)
[2024-09-15] MEDS ORDERED: ACETAMINOPHEN 325 MG TAB PO PRN (02:23)
[2024-09-15] MEDS ORDERED: ALBUTEROL HFA 8 GM INHALER INH PRN (02:23)
[2024-09-15 02:26] LABS: iSTAT Creatinine 1.5 mg/dl (0.6-1.3); iSTAT Hemoglobin 13.9 g/dl (14.0-18.0); iSTAT Ionized Calcium 1.08 mmol/l (1.12-1.32); iSTAT Potassium 3.4 mmol/L (3.3-5.0)
[2024-09-15] MEDS: MAGNESIUM SULFATE / D5W 1 GM/100 ML BAG IV STA (02:35)
--- NOTE | 2024-09-15 03:06 | XRay Report ---
EXAM: XR KUB/Abdomen 1 view CLINICAL HISTORY: ABD DISTENTION WTW TECHNIQUE: X-ray images of the abdomen were obtained in supine positions. COMPARISON: CT dated 06/10/2022. FINDINGS: Gas Pattern: Prominent air-filled bowel loops are seen in the abdomen, with the small bowel loops measuring up to 3.5 cm. No air-fluid levels were noted. Fecal loading is seen in the rectum. No evidence of pneumoperitoneum. Soft Tissues: Multiple pelvic phleboliths are seen. Degenerative changes in the visualized spine. Radiopaque shadow adjacent to the left femoral neck IMPRESSION: 1. Multiple prominent air-filled bowel loops are seen in the abdomen and pelvis, with the small bowel loops measuring up to 3.5 cm. Clinical correlation is suggested and further evaluation with CT can be considered to exclude low-grade/partial obstruction. 2. Fecal loading in the rectum. 3. No definite evidence of pneumoperitoneum. Electronically signed by Julianna Burgess 09-15-2024 03:06 AM
[2024-09-15] MEDS ORDERED: POLYETHYLENE (MIRALAX) 17 GM PACK PO PRN (08:35)
--- NOTE | 2024-09-15 08:39 | Communication Note ---
Date of Service: September 15, 2024 Admitted this AM Continues to have fever, intermittent tachycardia Remains pretty lethargic, sitting up in chair by the window and falls asleep constantly during conversation He denies CE or using CPAP Guards not he's been slow to wake up Lungs CTAB but has cough and nasal congestion LE wwp mild edema # Influenza A - supportive care, ordered 1L NS at 125 since still febrile and tachycardic, said to be outside window for oseltamivir # Acute metabolic encephalopathy - sent in from correctional facility for altered mental status - has been lethargic, also suspect he could have underlying CE # Hypokalemia, hypomag were replaced - follow up this AM labs = K/Mag now normal # Acute urinary retention - str cath for 300 mL this AM, cont bid tamsulosin for BPH and address constipation Dilated loops of bowel and constipation on KUB - increased bowel regimen, chronic constipation - miralax and senna daily and PRN -if vomiting evaluate for SBO -abdomen s/nt/nd # Mildly elevated AST and ALT due to influenza - unchanged this AM # Dehydration with mild hyponatremia resolved after IVF and mild renal insufficiency Cr 1.43-->1.13 after fluids Likely back to correctional facility in AM
[2024-09-15] MEDS ORDERED: DOCUSATE SODIUM 100 MG CAP PO SCH (09:00)
[2024-09-15] MEDS ORDERED: DOCUSATE SODIUM 250 MG PO SCH (09:00)
[2024-09-15] MEDS ORDERED: FUROSEMIDE 20 MG TAB PO SCH (09:00)
[2024-09-15 09:10] LABS: Albumin Globulin Ratio 1.2 (0.9-2); Albumin Level 3.7 gm/dl (3.4-5.0); BUN Creatinine Ratio 9.7 (10-20); Bilirubin,Total 0.6 mg/dl (0.2-1.0); Calcium 7.9 mg/dl (8.6-10.3); Creatinine Clr Calc Pharmacy 73.8 ml/min; Globulin 3.1 gm/dl (2.5-4.0); Magnesium 2.1 mg/dl (1.7-2.4); Potassium 3.5 mmol/L (3.5-5.1); Total Protein 6.8 gm/dl (6.0-8.3)
[2024-09-15 09:15] LABS: Troponin I High Sensitivity 19.4 pg/ml (0-20)
[2024-09-15] MEDS: guaiFENesin 600 MG TABCR PO SCH (09:17)
[2024-09-15] MEDS: ATORVASTATIN 40 MG TAB PO SCH (09:18)
[2024-09-15] MEDS: ASPIRIN 325 MG ECTAB PO SCH (09:18)
[2024-09-15] MEDS: BENZONATATE 100 MG CAPSULE PO SCH (09:18)
[2024-09-15] MEDS: TAMSULOSIN HCL 0.4 MG CAP PO SCH (09:18)
[2024-09-15] MEDS: CALCIUM POLYCARBOPHIL 625MG TAB PO SCH (09:19)
[2024-09-15] MEDS: POLYETHYLENE (MIRALAX) 17 GM PACK PO SCH (09:50)
[2024-09-15] MEDS: SENNA 8.6 MG TAB PO SCH (09:50)
[2024-09-15] MEDS: SODIUM CHLORIDE 0.9% 500 ML IV SCH (09:51)
--- NOTE | 2024-09-15 16:17 | Discharge Summary ---
Discharge Summary Date of Service September 16, 2024 Principal Dx & Hospital Course #1 = Principal Diagnosis (1) Weakness: (2) Influenza A: (3) Elevated troponin: (4) Hyponatremia: (5) Hypokalemia: (6) Hypomagnesemia: (7) Transaminitis: (8) Abdominal distension: Plan 78-year-old male with a past medical history of BPH, CVA in 2017, hyperlipidemia, GERD, prostate cancer in 2019, emphysema, chronic constipation. He presents today due to weakness and confusion for the past 24 hours, he has had cough, congestion, fever, chills, and dyspnea on exertion for approximately a week. Patient tested positive for influenza A in ED and is being admitted for monitoring with confusion. # Influenza A - supportive care, given IV fluids and acetaminophen, outside window for benefit from oseltamivir -NS bolus given this AM to tank him up -APAP, benzonatate or robitussin, guaifenex as needed # Acute metabolic encephalopathy - sent in from correctional facility for altered mental status - was lethargic, also suspect he could have underlying CE -resolved, AOx4 today -consider sleep study, high risk for CE # Hypokalemia, hypomagnesemia were replaced - K/Mag now normal # Acute urinary retention - str cath for 300 mL AM of 09/15, thereafter voiding spontaneously, cont bid tamsulosin for BPH and address constipation # Dilated loops of bowel and constipation on KUB - increased bowel regimen, chronic constipation - miralax and senna daily and PRN -no nausea or vomiting, eating well -abdomen s/nt/nd -increase bowel regimen # Mildly elevated AST and ALT due to influenza - recheck LFT in a few weeks # Dehydration with mild hyponatremia resolved after IVF and mild renal insufficiency Cr 1.43-->1.13 after fluids Chronic stable diagnoses: BPH - continue Flomax HTN - resume lasix once influenza has resolved depression - continue nortriptyline emphysema - continue albuterol as needed, not in exacerbation Notes For Next Care Provider Consider testing for sleep apnea Medication Changes From Visit Resume furosemide once influenza symptoms resolved Admission HPI Per Admitting Provider Patient is a 78-year-old male with a past medical history of BPH, CVA in 2017, hyperlipidemia, GERD, prostate cancer in 2019, emphysema, chronic constipation. He presents today due to weakness and confusion for the past 24 hours, he has had cough, congestion, fever, chills, and dyspnea on exertion for approximately a week. Patient tested positive for influenza A in ED and is being admitted for monitoring with confusion. Patient seen at bedside with [employer] officers present. He stated he has had flulike symptoms for approximately a week. His cough is dry. He only has dyspnea on exertion. He also endorses a headache today. He stated he also has had mild dizziness. He is oriented to self and time, disoriented to place. As per the officers, this is not his baseline. He also stated he has had a decreased p.o. intake for the past few days. He does not use oxygen at baseline and he got his home medications today. He does use nicotine products, e-cigarettes. Patient denies chest pain, abdominal pain, nausea, vomiting, diarrhea. Discharge Exam PHYSICAL EXAMINATION Last 24h vital signs reviewed, see documentation in flowsheet General: comfortable appearing, no distress, awake and alert lying in bed HEENT: Normocephalic, atraumatic, pupils round and equal, sclerae anicteric, no conjunctival injection, moist mucus membranes Lungs: Normal respiratory effort. Clear to auscultation bilaterally. No RRW Heart: Regular rate and rhythm, no murmurs. No JVD Abdomen: Soft, nontender, nondistended. Bowel sounds present. Extremities: Warm, dry, well-perfused. No extremity edema. Neuro: Alert and oriented x 4, face symmetric, moves 4 extremities well Psych: Normal affect and behavior Discharge Plan Discharge Items Patient Disposition: [facility] Reason For Visit: WEAKNESS, CONFUSION, FLU Discharge Diagnosis: Influenza A Activity: Resume your previous activity Non-emergency contact: Primary Care Provider Call non-emergency contact if: you have any medication questions and your symptoms worsen Follow-up/Referrals: Maryan HAGER [Primary Care Provider] - Diet: Regular Addtl Attending Provider Instructions: Influenza A -supportive care -presented too late to benefit from oseltamivir mild LFT elevation - AST/ALT both around 100 -likely from influenza -repeat LFT in a few weeks Lethargy -resolved Mild urinary retention - one I/O cath early 09/15 for PVR 300, since then spontaneously voiding -continue tamsulosin -address constipation Constipation on CT - bowel regimen recommended Possible CE based on observation, risk factors -consider sleep medicine referral Pending Studies at Discharge: Yes (blood cultures from 09/14, 09/15 - ngtd) Skilled Items Patient informed of condition?: Yes DNR: No Discharge Level of Care: Other Communicable Disease: Yes Discharge Prognosis: Improving Lines: None Urinary Catheter: No Medications and DC Order Prescriptions: New benzonatate 100 mg Capsule 100 mg PO TID PRN (Reason: cough) Qty: 0 0RF polyethylene glycol 3350 [Miralax] 17 gram Powder In Packet 17 g PO DAILY Qty: 0 0RF guaifenesin [Mucinex] 600 mg Tablet Extended Release 12hr 1,200 mg PO Q12 Qty: 0 0RF acetaminophen 325 mg Tablet 650 mg PO Q4H PRN (Reason: fever or pain) Qty: 0 0RF sennosides [Senokot] 8.6 mg Tablet 17.2 mg PO QAM Qty: 0 0RF Continued atorvastatin 40 mg Tablet 40 mg PO DAILY aspirin [Kelly Aspirin] 325 mg Tablet 325 mg PO DAILY tamsulosin [Flomax] 0.4 mg Capsule 0.4 mg PO BID calcium polycarbophil [FiberCon] 625 mg Tablet 625 mg PO BID albuterol sulfate 90 mcg/actuation Hfa Aerosol Inhaler 2 puff INHALATION QID PRN (Reason: Shortness Of Breath) docusate sodium 250 mg Capsule 500 mg PO BID nortriptyline 25 mg Capsule 25 mg PO HS Held furosemide 20 mg Tablet 20 mg PO DAILY Hold Instructions: Resume on 09/23/24. resume when influenza sx resolved Admission Data Admit Date/Time: 09/15/24 00:56 Attending Provider: Huma Dhillon Admit Provider: Mela Briceno Primary Care Provider: Maryan HAGER Other Providers: Mela Briceno Hospital Stay Data Consultations 09/15/24 00:34 ED Decision to Admit Stat Discharge Instructions Given to Patient (Per Discharging Provider) Influenza A -supportive care -presented too late to benefit from oseltamivir mild LFT elevation - AST/ALT both around 100 -likely from influenza -repeat LFT in a few weeks Lethargy -resolved Mild urinary retention - one I/O cath early 09/15 for PVR 300, since then spontaneously voiding -continue tamsulosin -address constipation Constipation on CT - bowel regimen recommended Possible CE based on observation, risk factors -consider sleep medicine referral Total Time Total Time Spent Total Time Spent (In Minutes): I personally spent: 40 minutes today on clinical care activities including: reviewing chart notes and vital signs reviewing labs reviewing studies examining and counseling the patient calling provider at [facility] discussion with bedside RN writing orders writing prescriptions, discharge instructions documentation Coding Level of Care Code 84732 INP/OBS DISCH >30 MIN Diagnoses Weakness R53.1 Influenza A J10.1 Elevated troponin R79.89 Hyponatremia E87.1 Hypokalemia E87.6 Hypomagnesemia E83.42 Transaminitis R74.01 Abdominal distension R14.0
[2024-09-15] MEDS: NORTRIPTYLINE HCL 25 MG CAP PO SCH (20:41)
[2024-09-15 21:10] VITALS: O2SAT 96
[2024-09-16 07:04] VITALS: BP 145/86; PULSE 99; RESP 22; TEMP 99.1
[2024-09-16] MEDS: SODIUM CHLORIDE 0.9% 1,000 ML IV ONE (08:41)
[2024-09-16 09:51] LABS: Hematocrit (blood only) 38.1 % (42.0-52.0); Hemoglobin 13.3 g/dl (14.0-18.0); Mean Corpuscular Hemoglobin 33.4 pg (25.0-34.0); Mean Corpuscular Hgb Conc 34.9 g/dL (32.0-36.0); Mean Corpuscular Volume 95.7 fL (80.0-100.0); Platelet Count 184 K/uL (130-400); RDW Coefficient of Variation 12.7 % (11.5-14.5); RDW Standard Deviation 45.3 fL (36.4-46.3); Red Blood Count 3.98 M/uL (4.70-6.10); White Blood Count 2.87 K/ul (4.8-10.8)
[2024-09-16 10:05] LABS: Albumin Globulin Ratio 1.1 (0.9-2); Albumin Level 3.3 gm/dl (3.4-5.0); BUN Creatinine Ratio 8.6 (10-20); Bilirubin,Total 0.4 mg/dl (0.2-1.0); Calcium 7.6 mg/dl (8.6-10.3); Creatinine Clr Calc Pharmacy 89.7 ml/min; Globulin 2.9 gm/dl (2.5-4.0); Total Protein 6.2 gm/dl (6.0-8.3)
[2024-09-16 10:35] LABS: Basophils # (auto) 0.01 K/uL (0.00-0.20); Basophils % (auto) 0.3 %; Eosinophils # (auto) 0.05 K/uL (0.00-0.50); Eosinophils % (auto) 1.7 %; Immature Granulocytes # (auto) 0.01 K/uL (0.01-0.20); Immature Granulocytes % (auto) 0.3 %; Lymphocytes # (auto) 1.17 K/uL (1.20-3.40); Lymphocytes % (auto) 40.8 %; Monocytes # (auto) 0.51 K/uL (0.11-0.59); Monocytes % (auto) 17.8 %; Neutrophils # (auto) 1.12 K/uL (1.40-6.50); Neutrophils % (auto) 39.1 %
--- NOTE | 2024-09-17 06:41 | Electrocardiogram Report ---
Test Reason : Blood Pressure : */* mmHG Vent. Rate : 115 BPM Atrial Rate : 115 BPM P-R Int : 170 ms QRS Dur : 74 ms QT Int : 324 ms P-R-T Axes : 55 3 52 degrees QTcB Int : 448 ms Sinus tachycardia Otherwise normal ECG When compared with ECG of 27-Sep-2023 10:32, No significant change was found Confirmed by Calin Cordova ([id number] on 09/17/2024 6:41:43 AM Referred By: Confirmed By: Calin Cordova
== END 2024-09-16 11:41 ==
LOC: ED 22:47 → 3N 22:47 → SUATTDRO 09-15 00:56 → 3N 09-15 01:44